=== PATIENT | female | born 1935 | race Caucasian/White ===

== ENCOUNTER 2016-08-13 10:16 | Emergency (ER) | payer OTHER ==
[~2016-08-13] VITALS: Ht 160 cm; Wt 93.0 kg
[~2016-08-13 10:16] MED LIST: ALL180 PO; DYZ PO; PRLSR20 PO; XNX25 PO; ZNTT/150 PO
[2016-08-13 10:22] VITALS: TEMP 36.7; Ht 160 cm; Wt 93.0 kg
[2016-08-13] MEDS ORDERED: OMEG10007 PO (10:54)
[2016-08-13] MEDS ORDERED: ALPR-411 PO (10:54)
[2016-08-13] MEDS ORDERED: CITA10TA4 PO (10:54)
[2016-08-13] MEDS ORDERED: PRED20TA PO (10:54)
[2016-08-13] MEDS ORDERED: TRIA37.5 PO (10:54)
--- NOTE | 2016-08-13 12:01 | DIAGNOSTIC IMAGING REPORT ---
LEFT KNEE 3 VIEWS CLINICAL HISTORY: Left knee pain COMPARISON: None. DISCUSSION: There are postsurgical changes of a total left knee arthroplasty and patellar resurfacing. There is minor lateral translation of the tibial component with respect to the femoral component. No acute fractures are visualized. There is no evidence for soft tissue swelling. IMPRESSION: 1. No acute fractures 2. Postsurgical changes 3. Suspected minor lateral translation of the tibial component with respect to the femoral component. Electronically signed by: Michael Valdes M.D. 08/13/2016 12:00 PM Dictated Date/Time: 08/13/2016 11:58 AM
--- NOTE | 2016-08-13 12:41 | DIAGNOSTIC IMAGING REPORT ---
ULTRASOUND LEFT VENOUS DOPP LOWER EXT UNILAT CLINICAL HISTORY: Left posterior knee pain COMPARISON STUDY: No previous studies for comparison. FINDINGS: No thrombus was visualized within the left common femoral superficial femoral or popliteal veins. The left anterior and posterior tibial veins appeared patent. Posterior tibial vein was not visualized. There is a complex lesion within the popliteal fossa measuring 57 x 59 x 52 mm. On a statistical basis this represents a complex popliteal cyst. A three-month follow-up study is recommended given that this is not a simple cyst. IMPRESSION: 1. Nonvisualization of the posterior tibial veins. Otherwise no DVT identified 2. 59 x 57 x 52 mm complex lesion within the popliteal fossa, likely representing a complex popliteal cyst. A three-month follow-up study would seem prudent Electronically signed by: Michael Valdes M.D. 08/13/2016 12:40 PM Dictated Date/Time: 08/13/2016 12:38 PM
--- NOTE | 2016-08-13 13:04 | EMERGENCY ROOM VISIT NOTE ---
ED Visit Note First contact with patient: 11:00 Patient was seen by our PA/PCAS. I was involved in the patient's care and did evaluate the patient myself. I was involved in the care throughout the ER stay. The patient's leg ultrasound does not show DVT, a Cervantes cyst was seen. Films show no fracture or trouble with her prosthetic knee joint. The patient's pain is likely from the Cervantes's cyst, she is being discharged home. She can be followed as an outpatient.
[2016-08-13 14:02] VITALS: BP 157/74; PULSE 63; O2SAT 95
--- NOTE | 2016-08-21 07:05 | EMERGENCY ROOM VISIT NOTE ---
History First contact with patient: 11:00 Chief Complaint: KNEEPAIN Stated Complaint: PAIN IN LEFT KNEE History of Present Illness The patient is a 81 year old white female who presents to the Emergency Room with complaints of left knee pain for several weeks. She has a history of double knee replacement approximately 20 years ago. She has tried ibuprofen, Tylenol, and prednisone without improvement. She complains of swelling in the back of the knee and calf. She denies any history of blood clot. Her family accompanies her today. Pain is 7/10. No trauma that she is aware of. she denies any long trips. she has not seen her PCP. Review of Systems REVIEW OF SYSTEM: HEENT: No dizziness, visual problems, hearing loss, or tinnitus. There is no difficulty swallowing and no oral lesions are present. PULMONARY: No cough, shortness of breath, sputum production or hemoptysis. CARDIOVASCULAR: No chest pain, palpitations, shortness of breath or peripheral edema. GASTROINTESTINAL: No diarrhea, constipation, nausea, vomiting, or abdominal pain. GENITOURINARY: No dysuria, frequency, urgency or nocturia. NEUROLOGIC: No weakness, muscle tenderness, epilepsy or history of neurological problems. MUSCULOSKELETAL: No history of joint tenderness/swelling. Positive history of arthritis and arthralgias. SKIN: No rashes or lesions. PSYCHIATRIC: No history of depression or mental illness. ENDOCRINE: No history of diabetes, thyroid disorders, or abnormal hair growth. Past Medical/Surgical History Previous surgeries: bilateral knee replacements. Medical history: significant for osteoarthritis Family History Noncontributory. Social History Smoking Status: Never Smoker Smokeless Tobacco Use: No Alcohol Use: none Drug Use: none Marital Status: single Housing Status: lives with family Occupation Status: retired Current/Historical Medications Scheduled Alprazolam (Xanax), 0.25 MG PO PRN Citalopram Hydrobromide (Citalopram Hydrobromide), 1 TAB PO DAILY Omeprazole (Prilosec), 20 MG PO DAILY Prednisone (Prednisone), 1 TAB PO DAILY Ranitidine (Zantac), 150 MG PO DAILY Triamterene/Hctz (Dyazide 37.5MG/25MG), 1 CAP PO DAILY Miscellaneous Medications Fish Oil ([place]-3), 1 CAP PO Allergies Coded Allergies: No Known Allergies (Unverified , 08/13/16) Physical Exam Vital Signs Date Time Temp Pulse Resp B/P Pulse Ox O2 Delivery O2 Flow Rate FiO2 08/13/16 14:02 63 15 157/74 95 08/13/16 13:51 63 15 157/74 95 Room Air 08/13/16 12:48 67 15 159/73 96 Room Air 08/13/16 10:22 36.7 86 18 169/98 93 Room Air Pain Rating (0-10): 0 Physical Exam Gen.: Well-developed, well-nourished, elderly white female, in no acute distress. Laying on a bed. Alert and oriented. Skin:Warm and dry with good turgor. No rashes or lesions. No ecchymosis or erythema. The patient is not diaphoretic. No abrasions. Visible edema to the left lower extremity. musculoskeletal: Her left knee evaluation reveals no significant intra- articular effusion. Supple motion of the left knee. stable collateral ligaments. No discomfort with palpation of the gastroc. No palpable cords. Normal Homans sign. Calf is palpably larger than the noninvolved side. Neurologic: Gross sensation is intact across both lower extremities by soft touch. Peripheral pulses are 2+. Medical Decision & Procedures ER Provider Diagnostic Interpretation: Radiographic imaging obtained today of the left knee shows no acute fractures. Postsurgical changes. Films were read by radiology. Ultrasound obtained today of the left lower extremity was read by radiology as negative for DVT. She does have a 5 x 5 x 5 cm complex lesion consistent with popliteal cyst is present. Follow-up ultrasound was recommended in 3 months. ED Course Patient was educated regarding today's findings as was her family. Conservative care measures were discussed. X-ray and ultrasound imaging were obtained. Family was reassured that I find no evidence for DVT. She likely has a Cervantes cyst. This may or may not resolve on its own. Given that she has internal hardware, I do not recommend aspiration. Possibility of gastroc strain was also discussed. Perform gentle stretching daily. Moist heat to the area several times per day. Tylenol every 6 hours as needed for discomfort. Physical therapy may be of benefit. Contact her PCP for a referral. Return to the ED for any other concerns. Patient was seen in conjunction with Dr. Gilliland, who also evaluated the patient and concurred with today's diagnosis and treatment plan. Medical Decision Possibility of DVT, superficial phlebitis, muscle strain, fracture, failed implant, and radiculopathy were considered. Impression Primary Impression: Cervantes's cyst of knee Additional Impression: Gastrocnemius strain, left Departure Information Dispostion Home / Self-Care Condition GOOD Forms HOME CARE DOCUMENTATION FORM, TYLENOL USE, IMPORTANT VISIT INFORMATION Patient Instructions [facility] Additional Instructions Gentle stretching daily Moist heat to the area several times per day may improve your comfort Tylenol every 6 hours as needed for discomfort Contact your PCP for a physical therapy referral for the left leg Problem Qualifiers Primary Impression: Cervantes's cyst of knee Laterality: left Qualified Codes: M71.22 - Synovial cyst of popliteal space [Cervantes], left knee Additional Impression: Gastrocnemius strain, left Encounter type: initial encounter Qualified Codes: S86.112A - Strain of other muscle(s) and tendon(s) of posterior muscle group at lower leg level, left leg, initial encounter
== END 2016-08-13 14:03 | disposition home or self-care (01) ==
LOC: C.EDB 10:19 → C.EDA 14:03
DX: M71.22 Synovial cyst of popliteal space [Baker], left knee (principal); S86.112A Strain of other muscle(s) and tendon(s) of posterior muscle group at lower leg level, left leg, initial encounter; X58.XXXA Exposure to other specified factors, initial encounter; Z96.653 Presence of artificial knee joint, bilateral; Z79.52 Long term (current) use of systemic steroids

== ENCOUNTER 2016-11-18 16:34 | Emergency (ER) | payer OTHER ==
[~2016-11-18] VITALS: Ht 160 cm; Wt 93.5 kg
[~2016-11-18 16:34] MED LIST changes: -ALL180 PO; +ALPR-411 PO; +CITA10TA4 PO; -DYZ PO; +OMEG10007 PO; +PRED20TA PO; +TRIA37.5 PO; -XNX25 PO
[2016-11-18 16:38] VITALS: TEMP 36.7; Ht 160 cm; Wt 93.5 kg
[2016-11-18] MEDS ORDERED: ACETAMINOPHEN 500 MG TAB PO STA (16:53)
--- NOTE | 2016-11-18 17:04 | EMERGENCY ROOM VISIT NOTE ---
History Report prepared by Gm: Annie Michael Under the Supervision of: Dr. Peng Gilliland M.D. First contact with patient: 16:48 Chief Complaint: KNEEPAIN Stated Complaint: LF KNEE PAIN History of Present Illness The patient is an 81 year old female who presents to the Emergency Room with complaints of persistent left knee pain that worsened today. She currently rates her discomfort as a 6/10 in severity. The patient states that she has a history of a Cervantes's Cyst diagnosed in July, noting that she had an x-ray and ultrasound. She states that the cyst ruptured a few days later and states that she developed a contusion to her left leg. The patient associates persistent edema to her left leg. She denies any fever, shortness of breath, or being on any blood thinners. The patient describes her discomfort as a sore pain and reports that she takes Advil and Tylenol for her discomfort. She denies any recent fall or injury to her left leg. The patient reports a surgical history of right and left knee replacements. The patient presents by ambulance, she was given Fentanyl in route for pain. Source of History: patient Onset: today Position: knee (left) Symptom Intensity: 6/10 Quality: other (sore) Timing: worsening, other (persistent) Associated Symptoms: No fevers, No SOB Review of Systems See HPI for pertinent positives & negatives. A total of 10 systems reviewed and were otherwise negative. Past Medical & Surgical Medical Problems: (1) Hypertension Surgical Problems: (1) H/O: hysterectomy (2) History of left knee replacement (3) History of tonsillectomy (4) S/P cholecystectomy (5) Status post right knee replacement Family History Cancer FH: heart disease Hypertension Social History Smoking Status: Never Smoker Alcohol Use: none Drug Use: none Marital Status: single Housing Status: lives with family Occupation Status: retired Current/Historical Medications Scheduled Alprazolam (Xanax), 0.25 MG PO PRN Citalopram Hydrobromide (Citalopram Hydrobromide), 1 TAB PO DAILY Ibuprofen Tab (Advil), 200-600 MG PO Q4H Omeprazole (Prilosec), 40 MG PO DAILY Prednisone (Prednisone), 1 TAB PO DAILY Ranitidine (Zantac), 150 MG PO DAILY Triamterene/Hctz (Dyazide 37.5MG/25MG), 1 CAP PO DAILY Miscellaneous Medications Fish Oil ([place]-3), 1 CAP PO Allergies Coded Allergies: No Known Allergies (Unverified , 11/18/16) Physical Exam Vital Signs Date Time Temp Pulse Resp B/P (MAP) Pulse Ox O2 Delivery O2 Flow Rate FiO2 11/18/16 18:00 70 20 165/88 95 Room Air 11/18/16 16:38 36.7 76 18 174/74 95 Room Air Physical Exam GENERAL: Patient is in no acute distress. HEENT: No acute trauma, normocephalic atraumatic, mucous membranes moist, no nasal congestion, no scleral icterus. NECK: No stridor, no adenopathy, no meningismus, trachea is midline. LUNGS: Clear to auscultation bilaterally, no wheeze, no rhonchi, breath sounds equal. HEART: 2/6 systolic murmur with a regular rate and rhythm ABDOMEN: Soft, nontender, bowel sounds positive, no hernias, no peritonitis. EXTREMITIES: Pedal edema noted, much more severe on left, no cellulitis, no gross deformity, no acute trauma. NEUROLOGIC: Oriented x 3, no acute motor or sensory deficits, no focal weakness. SKIN: No rash, no jaundice, no diaphoresis. Medical Decision & Procedures ER Provider Diagnostic Interpretation: Radiology results as stated below per my review and radiologist interpretation: ULTRASOUND LEFT LOWER EXTREMITY VENOUS CLINICAL HISTORY: Left leg swelling. COMPARISON STUDY: Left lower extremity venous ultrasound dated 08/13/2016. TECHNIQUE: Real-time, grayscale, and color Doppler sonography of the deep veins of the left lower extremity was performed from the inguinal crease to the calf. Compression and augmentation were utilized. FINDINGS: There is no sonographic evidence of deep venous thrombosis identified in the left lower extremity. The common femoral, superficial femoral, and popliteal veins are patent and normally compressible. The greater saphenous vein and the profunda femoris vein at the junction with the common femoral vein are clear. The visualized calf veins are patent. A complex nonvascular structure in the popliteal fossa is similar to previous and measures 9.2 x 4.9 x 6.8 cm. IMPRESSION: 1. There is no sonographic evidence of deep venous thrombosis identified in the left lower extremity. 2. A complex nonvascular structure in the popliteal fossa is similar to previous. This likely represent a complex bakers cyst but is incompletely characterized. Follow-up ultrasound in 3 months time is recommended to document resolution. Electronically signed by: Peng Starkey M.D. 11/18/2016 6:36 PM Dictated Date/Time: 11/18/2016 6:34 PM LEFT KNEE 3 VIEWS CLINICAL HISTORY: Left knee pain. Swelling. FINDINGS: AP, lateral, and sunrise views of left knee are compared to study dated 08/13/2016. The skeletal structures are osteopenic. No fracture is seen. A left knee arthroplasty is in near-anatomic alignment. No periprosthetic lucency is identified. There has been undersurface remodeling of the patella. A calcified fabella is incidentally noted. There is a large joint effusion. Soft tissue edema is present around the knee. IMPRESSION: 1. Soft tissue swelling and joint effusion. No acute bony abnormality is seen. 2. Osteopenia and left knee arthroplasty as above. Electronically signed by: Peng Starkey M.D. 11/18/2016 5:45 PM Dictated Date/Time: 11/18/2016 5:44 PM Medications Administered Medications (Trade) Dose Ordered Sig/Rhiannon Route Start Time Stop Time Status Last Admin Dose Admin Acetaminophen (Tylenol Tab) 1,000 mg NOW STAT PO 11/18/16 16:53 11/18/16 16:55 DC 11/18/16 17:46 1,000 MG ED Course 1648: The patient was evaluated in room C7. A complete history and physical exam was performed. 1652: Ordered Tylenol Tab 1000 mg PO. 1899: I reevaluated the patient and she is resting comfortably. I updated her on her test results. We are awaiting a call back from orthopedics. 1909: I discussed the patients case with Dr. Childers, Orthopedics. He states that the patient should be manjinder wrapped, she should use a walker, and the area should be iced. He states that he will see the patient on Monday or Monday. 1919: I reevaluated the patient and she is doing well. I discussed the exam findings with her and I discussed the treatment plan. She verbalized complete understanding and agreement. She is ready to go home. Medical Decision The patient is an 81 year old female who presents to the ED with complaints of left knee pain. Differential diagnoses considered include DVT, Cervantes's cyst, hematoma, cellulitis, fracture, knee joint effusion, prosthetic loosening. The patient presents with left knee pain and left leg swelling. Left leg ultrasound does not show DVT. A left Cervantes cyst was seen. Left knee film shows a prosthesis to be in proper position. No fracture seen. A knee joint effusion was noted. Clinically, there is no evidence for a septic joint, there is no erythema. There was no cellulitis. The patient was placed in an Manjinder wrap. She received oral Tylenol for pain control. I discussed the case with the on-call orthopedist. The patient is being discharged with a walker, elevation, rest and ice. She'll be seen in the outpatient orthopedic office. Medication Reconciliation: I attest that I have personally reviewed the patient' s current medication list. Blood Pressure Screening: Patient was found to have an elevated blood pressure and was referred to their primary doctor for recheck and further treatment. Consults Time Called: 1844 Consulting Physician: Dr. Childers, Orthopedics Returned Call: 1909 I discussed the patients case with Dr. Childers, Orthopedics. He states that the patient should be manjinder wrapped, she should use a walker, and the area should be iced. He states that he will see the patient on Monday or Monday. Impression Primary Impression: Left knee pain Additional Impressions: Effusion of left knee joint Cervantes cyst Leg edema, left Scribe Attestation The scribe's documentation has been prepared under my direction and personally reviewed by me in its entirety. I confirm that the note above accurately reflects all work, treatment, procedures, and medical decision making performed by me. Departure Information Dispostion Home / Self-Care Referrals Kiel De Dios M.D. (PCP) Zackary Childers M.D. Forms HOME CARE DOCUMENTATION FORM, IMPORTANT VISIT INFORMATION Patient Instructions My [facility] [email or web address] Additional Instructions use the walker ice to the knee for 30 minutes at a time otc pain meds wear the manjinder wrap for support use a walker to get around no steps try and keep the left leg elevated return for fever or redness call orthopedics for an appt monday Problem Qualifiers
--- NOTE | 2016-11-18 17:46 | DIAGNOSTIC IMAGING REPORT ---
LEFT KNEE 3 VIEWS CLINICAL HISTORY: Left knee pain. Swelling. FINDINGS: AP, lateral, and sunrise views of left knee are compared to study dated 08/13/2016. The skeletal structures are osteopenic. No fracture is seen. A left knee arthroplasty is in near-anatomic alignment. No periprosthetic lucency is identified. There has been undersurface remodeling of the patella. A calcified fabella is incidentally noted. There is a large joint effusion. Soft tissue edema is present around the knee. IMPRESSION: 1. Soft tissue swelling and joint effusion. No acute bony abnormality is seen. 2. Osteopenia and left knee arthroplasty as above. Electronically signed by: Peng Starkey M.D. 11/18/2016 5:45 PM Dictated Date/Time: 11/18/2016 5:44 PM
[2016-11-18] MEDS ORDERED: OMEP40CA41 PO (18:10)
[2016-11-18] MEDS ORDERED: IBUP-103 PO (18:11)
--- NOTE | 2016-11-18 18:37 | DIAGNOSTIC IMAGING REPORT ---
ULTRASOUND LEFT LOWER EXTREMITY VENOUS CLINICAL HISTORY: Left leg swelling. COMPARISON STUDY: Left lower extremity venous ultrasound dated 08/13/2016. TECHNIQUE: Real-time, grayscale, and color Doppler sonography of the deep veins of the left lower extremity was performed from the inguinal crease to the calf. Compression and augmentation were utilized. FINDINGS: There is no sonographic evidence of deep venous thrombosis identified in the left lower extremity. The common femoral, superficial femoral, and popliteal veins are patent and normally compressible. The greater saphenous vein and the profunda femoris vein at the junction with the common femoral vein are clear. The visualized calf veins are patent. A complex nonvascular structure in the popliteal fossa is similar to previous and measures 9.2 x 4.9 x 6.8 cm. IMPRESSION: 1. There is no sonographic evidence of deep venous thrombosis identified in the left lower extremity. 2. A complex nonvascular structure in the popliteal fossa is similar to previous. This likely represent a complex bakers cyst but is incompletely characterized. Follow-up ultrasound in 3 months time is recommended to document resolution. Electronically signed by: Peng Starkey M.D. 11/18/2016 6:36 PM Dictated Date/Time: 11/18/2016 6:34 PM
[2016-11-18 19:41] VITALS: BP 145/91; PULSE 78; O2SAT 96
== END 2016-11-18 19:41 | disposition home or self-care (01) ==
LOC: EDBD 16:34 → C.EDC 16:35
DX: M71.22 Synovial cyst of popliteal space [Baker], left knee (principal); M25.462 Effusion, left knee; R60.0 Localized edema; I10 Essential (primary) hypertension; Z80.9 Family history of malignant neoplasm, unspecified; Z82.49 Family history of ischemic heart disease and other diseases of the circulatory system; Z79.899 Other long term (current) drug therapy; Z79.52 Long term (current) use of systemic steroids

== ENCOUNTER → 2016-11-21 | Outpatient (CLI) | payer OTHER ==
[~2016-11-21] MED LIST changes: +IBUP-103 PO; +OMEP40CA41 PO; -PRLSR20 PO
== END | disposition home or self-care (01) ==
LOC: C.RDSM 12:25
PROVIDERS: ATTEND Physical Medicine & Rehabilitation Sports Medicine
DX: M79.605 Pain in left leg (principal)

== ENCOUNTER 2017-10-05 16:28 | Inpatient (IN) | payer OTHER ==
[~2017-10-05] VITALS: Ht 160 cm; Wt 97.7 kg
[~2017-10-05 16:28] MED LIST changes: -OMEP40CA41 PO; +RANI150T85 PO; -ZNTT/150 PO
[2017-10-05] MEDS ORDERED: ONDANSETRON INJ 2 MG/ML 2 ML VIAL IV STA (16:43)
[2017-10-05] MEDS ORDERED: SODIUM CHLORIDE 0.9% 1000ML 1,000 ML IV STA (16:43)
[2017-10-05] MEDS: HYDROmorphone INJ 0.5 MG/0.5 ML SYR IV PRN ×2 (17:17→19:51)
[2017-10-05 17:52] LABS: HEMATOCRIT 49.2 % (37-47); LYMPH % 4.3 %; LYMPH ABS # 0.18 K/uL (1.2-3.4); MEAN CELL VOLUME 92.3 fL (80-100); MEAN CORPUSCULAR HEMOGLOBIN 31.9 pg (25-34); MEAN CORPUSCULAR HGB CONC 34.6 g/dl (32-36); MEAN PLATELET VOLUME 9.7 fL (7.4-10.4); MONO % 0.5 %; MONO ABS # 0.02 K/uL (0.11-0.59); NEUT % 95.2 %; NEUT ABS # 3.97 K/uL (1.4-6.5); PLATELET COUNT 116 K/uL (130-400); RED CELL DISTRIBUTION WIDTH CV 15.1 % (11.5-14.5); WHITE BLOOD COUNT 4.17 K/uL (4.8-10.8)
--- NOTE | 2017-10-05 17:55 | DIAGNOSTIC IMAGING REPORT ---
ABD/PELVIS NO IV OR ORAL CONT CLINICAL HISTORY: 82 years-old Female presenting with acute abdominal pain, mid abdominal pain. TECHNIQUE: Multidetector CT of the abdomen and pelvis was performed without the use of intravenous contrast. IV contrast: None. A dose lowering technique was used consistent with the principles of ALARA (as low as reasonably achievable). COMPARISON: None. CT DOSE (mGy.cm): The estimated cumulative dose is 1041.58 mGycm. FINDINGS: Dye Padder Operator topogram: Large hiatal hernia. Lung bases: Consolidation volume loss along the paramediastinal lower lobe secondary to the large hilar hernia. Normal heart size. No pericardial or pleural effusion. Liver: Normal morphology. Normal density. Marked periportal edema suggested though an element of this may represent delayed ductal dilatation. Biliary: Mild biliary ductal prominence likely a reservoir effect in the post cholecystectomy state. Gallbladder surgically absent. Pancreas: Severe parenchymal atrophy. Spleen: Top normal in size. Adrenal glands: Normal noncontrast appearance. Kidneys and ureters: Normal noncontrast appearance. No nephrolithiasis. No hydronephrosis. Normal ureters. Parapelvic cysts suggested at the lower pole the left kidney. Bladder: Normal. Pelvic organs: Uterus surgically absent. No adnexal masses. Bowel: Diverticulosis of the sigmoid and descending colon. The hepatic flexure and a large portion of the transverse colon are contained within the large hiatal hernia. No bowel obstruction. The appendix is normal. No pericolonic fat infiltration. Trace periduodenal fluid with suggestion of mild wall thickening of the descending portion of the duodenum. A duodenal diverticula may be present in the horizontal portion. Peritoneal cavity: No free fluid or intraperitoneal gas. Lymph nodes: No gross lymphadenopathy allowing for noncontrast technique. Vasculature: Atherosclerosis of the normal caliber abdominal aorta. Abdominal wall: Mild body wall edema. Musculoskeletal: Degenerative changes of the spine. Osteopenia. IMPRESSION: 1. Significant periportal edema and trace periduodenal fluid. This is nonspecific and may suggest aggressive volume resuscitation. Correlate with lipase to exclude pancreatitis. Alternatively, given apparent wall thickening of the duodenum, this could represent duodenitis. 2. Duodenal diverticulum though the inflammatory change does not appear centered around this. 3. Prominence of biliary ducts may relate to a reservoir effect in the post cholecystectomy state. Correlate clinically to exclude ascending cholangitis. 4. Diverticulosis. No evidence of diverticulitis. 5. Large hilar hernia containing stomach and transverse colon. No bowel obstruction. 6. Osteopenia. Electronically signed by: Zackary Downey M.D. 10/05/2017 5:54 PM Dictated Date/Time: 10/05/2017 5:46 PM
[2017-10-05] MEDS ORDERED: OMEP40CA41 PO (18:10)
[2017-10-05 18:12] LABS: ALBUMIN 3.1 gm/dl (3.4-5.0); ALT/SGPT 644 U/L (12-78); AST/SGOT 845 U/L (15-37); BLOOD UREA NITROGEN 18 mg/dl (7-18); CALCIUM 9.8 mg/dl (8.5-10.1); CARBON DIOXIDE 29 mmol/L (21-32); CREATININE 1.14 mg/dl (0.60-1.20); GLUCOSE 152 mg/dl (70-99); POTASSIUM 3.4 mmol/L (3.5-5.1); SODIUM 139 mmol/L (136-145)
[2017-10-05 18:16] LABS: ALKALINE PHOSPHATASE 258 U/L (45-117); TOTAL PROTEIN 6.9 gm/dl (6.4-8.2)
[2017-10-05 18:38] LABS: LIPASE > 30000 U/L (73-393)
[2017-10-05] MEDS ORDERED: ACETAMINOPHEN 325 MG TAB PO PRN (19:15)
[2017-10-05] MEDS ORDERED: ONDANSETRON INJ 2 MG/ML 2 ML VIAL IV PRN (19:15)
[2017-10-05] MEDS ORDERED: PIPERACILL/TAZOBAC CONSULT ACTIVE PRN ×2 (20:00→20:15)
[2017-10-05] MEDS ORDERED: PIPERACILLIN/TAZOBACTAM 4.5 GM/100ML D5W IV ONE (20:15)
[2017-10-05] MEDS ORDERED: HYDROmorphone INJ 0.5 MG/0.5 ML SYR IV PRN (20:30)
--- NOTE | 2017-10-05 20:37 | History and Physical ---
History & Physical Date & Time of Service: Oct 05, 2017 ~ 18:45 Chief Complaint: Abdominal Pain Primary Care Physician: Dr. Rose History of Present Illness Source: patient, clinic records, hospital records 82-year-old female who presents to the ER with chief complaint of abdominal pain. Patient reports her pain initially began throughout the night however she reports she was able to sleep. When patient woke up this morning she ate breakfast and then the pain returned. It progressively got worse throughout the day. She reports pain is located in the mid abdomen and midepigastric area. She denies any radiation of the pain. She reports the pain is severe. She had nausea but denies any vomiting. She had some episodes of hot flashes and chills with the pain. No documented fevers. She reports she otherwise has been feeling well recently. No chest pain or shortness of breath. She reports some occasional lightheadedness when standing too quickly which is chronic. No dizziness or syncopal events. She denies any urinary symptoms. In the ED, patient is found to have a transaminitis and lipase of greater than 30,000. She is hemodynamically stable. She was given IVF, IV Zofran, and IV Dilaudid. She reports marked improvement in her symptoms. 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 (3) CKD (chronic kidney disease), stage III Status: Chronic (4) GERD (gastroesophageal reflux disease) Status: Chronic (5) Hiatal hernia Status: Chronic (6) Hypertension Status: Chronic Surgical Problems: (1) History of total bilateral knee replacement Status: Chronic (2) Hx of tonsillectomy Status: Chronic (3) S/P cholecystectomy Status: Chronic (4) S/P hysterectomy Status: Chronic Family History Noncontributory secondary to patient's advanced age Social History Smoking Status: Never Smoker Alcohol Use: none Drug Use: none Housing status: lives alone Allergies Coded Allergies: No Known Allergies (Unverified , 11/18/16) Home Medications Scheduled Citalopram Hydrobromide (Citalopram Hydrobromide), 10 MG PO DAILY Omeprazole (Prilosec), 40 MG PO DAILY Ranitidine (Zantac), 150 MG PO DAILY Triamterene/Hctz (Dyazide 37.5MG/25MG), 1 CAP PO DAILY Review of Systems ROS per HPI, all other systems reviewed and negative Physical Exam Vital Signs Date Time Temp Pulse Resp B/P (MAP) Pulse Ox O2 Delivery O2 Flow Rate FiO2 10/05/17 20:01 75 20 99/56 93 10/05/17 19:16 81 18 96/56 96 Room Air 10/05/17 18:30 84 20 143/80 94 Room Air 10/05/17 17:59 90 18 124/64 94 Room Air 10/05/17 16:35 36.9 80 18 160/81 97 Room Air General Appearance: WD/WN, no apparent distress Head: normocephalic, atraumatic Eyes: normal inspection, EOMI, sclerae normal ENT: hearing grossly normal, + pertinent finding (Mucous membranes dry) Neck: supple, no JVD, trachea midline Respiratory/Chest: lungs clear, normal breath sounds, no respiratory distress Cardiovascular: regular rate, rhythm, no edema, normal peripheral pulses Abdomen/GI: normal bowel sounds, non tender, soft, no organomegaly Extremities/Musculoskelatal: normal inspection, no calf tenderness, normal capillary refill Neurologic/Psych: no motor/sensory deficits, alert, normal mood/affect, oriented x 3 Skin: normal color, warm/dry Diagnostics Laboratory Results 10/05/17 17:20 Red Blood Count 5.33, Mean Corpuscular Volume 92.3, Mean Corpuscular Hemoglobin 31.9, Mean Corpuscular Hemoglobin Concent 34.6, Mean Platelet Volume 9.7, Neutrophils (%) (Auto) 95.2, Lymphocytes (%) (Auto) 4.3, Monocytes (%) (Auto) 0.5, Eosinophils (%) (Auto) 0.0, Basophils (%) (Auto) 0.0, Neutrophils # (Auto) 3.97, Lymphocytes # (Auto) 0.18, Monocytes # (Auto) 0.02, Eosinophils # (Auto) 0.00, Basophils # (Auto) 0.00 10/05/17 17:20 Test 10/05/17 17:20 10/05/17 18:50 10/05/17 19:56 10/05/17 21:34 White Blood Count 4.17 K/uL (4.8-10.8) Red Blood Count 5.33 M/uL (4.2-5.4) Hemoglobin 17.0 g/dL (12.0-16.0) Hematocrit 49.2 % (37-47) Mean Corpuscular Volume 92.3 fL (80-100) Mean Corpuscular Hemoglobin 31.9 pg (25-34) Mean Corpuscular Hemoglobin Concent 34.6 g/dl (32-36) Platelet Count 116 K/uL (130-400) Mean Platelet Volume 9.7 fL (7.4-10.4) Neutrophils (%) (Auto) 95.2 % Lymphocytes (%) (Auto) 4.3 % Monocytes (%) (Auto) 0.5 % Eosinophils (%) (Auto) 0.0 % Basophils (%) (Auto) 0.0 % Neutrophils # (Auto) 3.97 K/uL (1.4-6.5) Lymphocytes # (Auto) 0.18 K/uL (1.2-3.4) Monocytes # (Auto) 0.02 K/uL (0.11-0.59) Eosinophils # (Auto) 0.00 K/uL (0-0.5) Basophils # (Auto) 0.00 K/uL (0-0.2) RDW Standard Deviation 51.0 fL (36.4-46.3) RDW Coefficient of Variation 15.1 % (11.5-14.5) Immature Granulocyte % (Auto) 0.0 % Immature Granulocyte # (Auto) 0.00 K/uL (0.00-0.02) Anion Gap 8.0 mmol/L (3-11) Est Creatinine Clear Calc Drug Dose 40.2 ml/min Estimated GFR () 51.5 Estimated GFR (Non- 44.4 BUN/Creatinine Ratio 15.7 (10-20) Calcium Level 9.8 mg/dl (8.5-10.1) Magnesium Level 1.7 mg/dl (1.8-2.4) Total Bilirubin 2.6 mg/dl (0.2-1) Direct Bilirubin 1.9 mg/dl (0-0.2) Aspartate Amino Transf (AST/SGOT) 845 U/L (15-37) Alanine Aminotransferase (ALT/SGPT) 644 U/L (12-78) Alkaline Phosphatase 258 U/L (45-117) Total Protein 6.9 gm/dl (6.4-8.2) Albumin 3.1 gm/dl (3.4-5.0) Triglycerides Level 140 mg/dl (0-150) Lipase > 98936 U/L (73-393) Urine Color YELLOW Urine Appearance CLEAR (CLEAR) Urine pH 5.0 (4.5-7.5) Urine Specific Summers 1.010 (1.000-1.030) Urine Protein NEG (NEG) Urine Glucose (UA) NEG (NEG) Urine Ketones NEG (NEG) Urine Occult Blood 1+ (NEG) Urine Nitrite NEG (NEG) Urine Bilirubin 1+ (NEG) Urine Urobilinogen POS (NEG) Urine Leukocyte Esterase NEG (NEG) Urine RBC 5-10 /hpf (0-4) Urine WBC 1-5 /hpf (0-5) Urine Epithelial Cells 10-20 /lpf (0-5) Urine Bacteria NEG (NEG) Acetaminophen Level ug/ml (10-30) Hepatitis B Surface Antigen NEG (NEG) Hepatitis C Antibody NEG (NEG) Date/Time Source Procedure Growth Status 10/05/17 21:34 Blood Blood Culture Pending Ordered Results Past 24 Hours Test 10/05/17 17:20 10/05/17 18:50 10/05/17 19:56 Range/Units White Blood Count 4.17 4.8-10.8 K/uL Red Blood Count 5.33 4.2-5.4 M/uL Hemoglobin 17.0 12.0-16.0 g/dL Hematocrit 49.2 37-47 % Mean Corpuscular Volume 92.3 80-100 fL Mean Corpuscular Hemoglobin 31.9 25-34 pg Mean Corpuscular Hemoglobin Concent 34.6 32-36 g/dl Platelet Count 116 130-400 K/uL Mean Platelet Volume 9.7 7.4-10.4 fL Neutrophils (%) (Auto) 95.2 % Lymphocytes (%) (Auto) 4.3 % Monocytes (%) (Auto) 0.5 % Eosinophils (%) (Auto) 0.0 % Basophils (%) (Auto) 0.0 % Neutrophils # (Auto) 3.97 1.4-6.5 K/uL Lymphocytes # (Auto) 0.18 1.2-3.4 K/uL Monocytes # (Auto) 0.02 0.11-0.59 K/uL Eosinophils # (Auto) 0.00 0-0.5 K/uL Basophils # (Auto) 0.00 0-0.2 K/uL RDW Standard Deviation 51.0 36.4-46.3 fL RDW Coefficient of Variation 15.1 11.5-14.5 % Immature Granulocyte % (Auto) 0.0 % Immature Granulocyte # (Auto) 0.00 0.00-0.02 K/uL Sodium Level 139 136-145 mmol/L Potassium Level 3.4 3.5-5.1 mmol/L Chloride Level 102 98-107 mmol/L Carbon Dioxide Level 29 21-32 mmol/L Anion Gap 8.0 3-11 mmol/L Blood Urea Nitrogen 18 7-18 mg/dl Creatinine 1.14 0.60-1.20 mg/dl Est Creatinine Clear Calc Drug Dose 40.2 ml/min Estimated GFR () 51.5 Estimated GFR (Non- 44.4 BUN/Creatinine Ratio 15.7 10-20 Random Glucose 152 70-99 mg/dl Calcium Level 9.8 8.5-10.1 mg/dl Magnesium Level 1.7 1.8-2.4 mg/dl Total Bilirubin 2.6 0.2-1 mg/dl Direct Bilirubin 1.9 0-0.2 mg/dl Aspartate Amino Transf (AST/SGOT) 845 15-37 U/L Alanine Aminotransferase (ALT/SGPT) 644 12-78 U/L Alkaline Phosphatase 258 45-117 U/L Total Protein 6.9 6.4-8.2 gm/dl Albumin 3.1 3.4-5.0 gm/dl Triglycerides Level 140 0-150 mg/dl Lipase > 21712 73-393 U/L Urine Color YELLOW Urine Appearance CLEAR CLEAR Urine pH 5.0 4.5-7.5 Urine Specific Summers 1.010 1.000-1.030 Urine Protein NEG NEG Urine Glucose (UA) NEG NEG Urine Ketones NEG NEG Urine Occult Blood 1+ NEG Urine Nitrite NEG NEG Urine Bilirubin 1+ NEG Urine Urobilinogen POS NEG Urine Leukocyte Esterase NEG NEG Urine RBC 5-10 0-4 /hpf Urine WBC 1-5 0-5 /hpf Urine Epithelial Cells 10-20 0-5 /lpf Urine Bacteria NEG NEG Diagnostic Radiology CT ABD/PELVIS IMPRESSION: 1. Significant periportal edema and trace periduodenal fluid. This is nonspecific and may suggest aggressive volume resuscitation. Correlate with lipase to exclude pancreatitis. Alternatively, given apparent wall thickening of the duodenum, this could represent duodenitis. 2. Duodenal diverticulum though the inflammatory change does not appear centered around this. 3. Prominence of biliary ducts may relate to a reservoir effect in the post cholecystectomy state. Correlate clinically to exclude ascending cholangitis. 4. Diverticulosis. No evidence of diverticulitis. 5. Large hilar hernia containing stomach and transverse colon. No bowel obstruction. 6. Osteopenia. Impression Assessment and Plan ACUTE PANCREATITIS TRANSAMINITIS -Admit to telemetry -Patient presenting with abdominal pain 1 day; in the ED found to have transaminitis and lipase > 30,000 -CT ABD/pelvis findings as above -History of cholecystectomy; no noted gallstones or sludge on CT scan -No history of alcohol use, no new medications, no offending medications and on home medication list -Will check right upper quadrant ultrasound, portal vein Doppler, and MRCP -Currently afebrile, no leukocytosis; given possible duodenitis and cholangitis noted on CT scan will empirically cover with Zosyn for now -Check Tylenol level and hepatitis panel; noted normal triglycerides -N.p.o., and assess at 200 mL/hour -Case discussed with Dr. Vogel, GI on-call HYPERTENSION -BP currently stable -Will hold Maxide due to acute illness GERD, HIATAL HERNIA -Will place on IV PPI due to n.p.o. status ANXIETY -Hold citalopram for now while n.p.o. DVT PROPHYLAXIS -SCDs in the event patient needs an invasive procedure CODE STATUS -Patient is a DNR as per my discussion with her. DISPOSITION -In my clinical judgment this beneficiary meets acute admission criteria, established by [facility], that includes being hospitalized through two midnights. ADDENDUM: I have seen and examined the patient and agree with the assessment and plan as stated with the following exceptions. The patient is not jaundiced and denies any bloating, bowel changes or weight loss. She has a clinical picture consistent with acute pancreatitis, however, lab values are quite elevated in such an acute setting with symptoms beginning just after breakfast this morning. She felt well yesterday. 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 Tylenol level could not be run as analyzer could not interpret result off the icteric sample. This was sent to a reference facility. INR pending. She denies any fevers, chills or diarrhea and evidence of duodenitis is more likely a result of surrounding inflammation. Covering with Zosyn and blood cultures ordered to ensure no translocation of bacteria. She has a very dilated biliary tree without evidence of clear stones, so a liver us with doppler was performed to rule out clot and was negative. Plan to perform MRCP overnight to elucidate pancreatic structures and look for obstructions or other concerning etiologies such as pancreatic head mass. This may not have been picked up on CT a/p without contrast performed earlier. She had some dilaudid just prior to my exam , and I could not reproduce any TTP in epigastric region or elsewhere. Abdomen was nondistended and soft with normoactive bowel sounds. Cont to treat AP with IVF, pain control and bowel rest. Appreciate GI recs in am. Of note, I explained the plan with both the patient and family separately and spent roughly 20 minutes with each. All questions were answered to their satisfaction. Julius, DO Resuscitation Status VTE Prophylaxis Will order VTE Prophylaxis: Yes
[2017-10-05 21:00] VITALS: BP 97/51; PULSE 83; TEMP 36.4; O2SAT 93; Ht 160 cm; Wt 97.7 kg
[2017-10-05] MEDS ORDERED: PIPERACILL/TAZOBAC IV 3.375 GM in NSS 100 ML IV ONE (21:00)
[2017-10-05 21:30] LABS: HEP C IGG 13 YRS+OLDER_RFLX NEG (NEG)
--- NOTE | 2017-10-05 21:30 | DIAGNOSTIC IMAGING REPORT ---
GALLBLADDER-ABD LIMITED, DUPLEX PORTAL HEPATIC VEINS HISTORY: 82 years-old Female pancreatitis acute right upper quadrant abdominal pain with pancreatitis COMPARISON: CT 10/05/2017 TECHNIQUE: Multiple real-time sonographic images of the abdominal right upper quadrant were obtained assessing grayscale appearance and color flow. Spectral analysis of the hepatic vasculature also obtained. FINDINGS: Study is limited secondary to patient condition and body habitus. Pancreas is not well visualized. The liver appears heterogeneous measuring up to 18 cm in length. No intrahepatic mass lesions or biliary ductal dilation identified. Prior cholecystectomy. The common bile duct measures 8 mm, within normal limits considering patient's age and postcholecystectomy status. Hepatopedal flow within the portal vein with velocities measuring up to 39 cm/s. Patent IVC with normal-appearing phasic waveforms of the hepatic veins. Patent hepatic artery. Right kidney measures 10.1 cm in length and is unremarkable. IMPRESSION: 1. Nonspecific mildly heterogeneous appearance of the liver. 2. Normal sonographic appearance of the hepatic vasculature. 3. Prior cholecystectomy. The above report was generated using voice recognition software. It may contain grammatical, syntax or spelling errors. Electronically signed by: Sergio Guidry M.D. 10/05/2017 9:28 PM Dictated Date/Time: 10/05/2017 9:23 PM
--- NOTE | 2017-10-05 21:41 | EMERGENCY ROOM VISIT NOTE ---
History Report prepared by Gm: Juanita Bains Under the Supervision of: Dr. Khalif Hagen M.D. First contact with patient: 16:34 Chief Complaint: ABDOMINAL PAIN Stated Complaint: Abdominal Pain Nursing Triage Summary: Patient arrives via ems from home with complaints of mid abdominal pain that radiates into back, patient stated "I thought it was just gas pains so I took some stomach medicine but it did not help." History of gallbladder removed and hysterectomy. PT ate her breakfast this am and then felt worse afterwards. History of Present Illness The patient is an 82 year old female who presents to the Emergency Room with complaints of persistent mid abdominal pain starting this morning. She presents to the ED by EMS. She had been feeling well yesterday. Her symptoms worsened after she ate breakfast this morning. She felt chilled and diaphoretic. She was nauseous, but unable to vomit. Her abdominal pain goes into her back. She currently rates her discomfort as a 7/10 in severity. It was a 9/10 at worst. She is currently not nauseous. She had a bowel movement today. She has a history of hysterectomy, cholecystectomy, hiatal hernia, and acid reflux. She denies any history of heart problems. Pt denies LOC, headache, fevers, visual changes, neck pain, chest pain, breathing difficulties, vomiting, melena, hematochezia, urinary symptoms, numbness, weakness, lymphadenopathy, rash, or other complaints. Source of History: patient Onset: this morning Position: abdomen (mid) Symptom Intensity: 7/10 currently, 9/10 at worst Timing: other (persistent) Associated Symptoms: + chills, + diaphoresis, + nausea, + back pain Review of Systems See HPI for pertinent positives and negatives. A total of ten systems were reviewed and were otherwise negative. Past Medical & Surgical Medical Problems: (1) Anxiety (2) Cervantes's cyst of knee (3) CKD (chronic kidney disease), stage III (4) GERD (gastroesophageal reflux disease) (5) Hiatal hernia (6) Hypertension Surgical Problems: (1) History of total bilateral knee replacement (2) Hx of tonsillectomy (3) S/P cholecystectomy (4) S/P hysterectomy Family History Cancer FH: heart disease Hypertension Social History Smoking Status: Never Smoker Alcohol Use: none Drug Use: none Marital Status: single Housing Status: lives with family Occupation Status: retired Current/Historical Medications Scheduled Citalopram Hydrobromide (Citalopram Hydrobromide), 10 MG PO DAILY Omeprazole (Prilosec), 40 MG PO DAILY Ranitidine (Zantac), 150 MG PO DAILY Triamterene/Hctz (Dyazide 37.5MG/25MG), 1 CAP PO DAILY Allergies Coded Allergies: No Known Allergies (Unverified , 11/18/16) Physical Exam Vital Signs Date Time Temp Pulse Resp B/P (MAP) Pulse Ox O2 Delivery O2 Flow Rate FiO2 10/05/17 18:30 84 20 143/80 94 Room Air 10/05/17 17:59 90 18 124/64 94 Room Air 10/05/17 16:35 36.9 80 18 160/81 97 Room Air Physical Exam GENERAL: Awake, alert, uncomfortable-appearing, in no distress HENT: Normocephalic, atraumatic. Oropharynx unremarkable. EYES: Normal conjunctiva. Sclera non-icteric. NECK: Supple. No nuchal rigidity. FROM. No masses. RESPIRATORY: Clear to auscultation. No wheezes. No rales. Normal respiratory effort. CARDIAC: Normal rate. Normal rhythm. No murmurs. No rubs. Extremities warm and well perfused. Pulses equal. No JVD. GI: Soft, non-distended. Epigastric and midline abdominal tenderness to palpation. No rebound or guarding. No masses. RECTAL: Deferred. MUSCULOSKELETAL: Atraumatic. Chest examination reveals no tenderness. The back is symmetrical on inspection without obvious abnormality. There is no CVA tenderness to palpation. No joint edema. LOWER EXTREMITIES: Calves are equal size bilaterally and non-tender. No edema. No discoloration. NEURO: Normal sensorium. No sensory or motor deficits noted. SKIN: No rash or jaundice noted. Medical Decision & Procedures ER Provider Diagnostic Interpretation: Radiology results as stated below per my review and radiologist interpretation: ABD/PELVIS NO IV OR ORAL CONT CLINICAL HISTORY: 82 years-old Female presenting with acute abdominal pain, mid abdominal pain. TECHNIQUE: Multidetector CT of the abdomen and pelvis was performed without the use of intravenous contrast. IV contrast: None. A dose lowering technique was used consistent with the principles of ALARA (as low as reasonably achievable). COMPARISON: None. CT DOSE (mGy.cm): The estimated cumulative dose is 1041.58 mGycm. 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 Lung bases: Consolidation volume loss along the paramediastinal lower lobe secondary to the large hilar hernia. Normal heart size. No pericardial or pleural effusion. Liver: Normal morphology. Normal density. Marked periportal edema suggested though an element of this may represent delayed ductal dilatation. Biliary: Mild biliary ductal prominence likely a reservoir effect in the post cholecystectomy state. Gallbladder surgically absent. Pancreas: Severe parenchymal atrophy. Spleen: Top normal in size. Adrenal glands: Normal noncontrast appearance. Kidneys and ureters: Normal noncontrast appearance. No nephrolithiasis. No hydronephrosis. Normal ureters. Parapelvic cysts suggested at the lower pole the left kidney. Bladder: Normal. Pelvic organs: Uterus surgically absent. No adnexal masses. Bowel: Diverticulosis of the sigmoid and descending colon. The hepatic flexure and a large portion of the transverse colon are contained within the large hiatal hernia. No bowel obstruction. The appendix is normal. No pericolonic fat infiltration. Trace periduodenal fluid with suggestion of mild wall thickening of the descending portion of the duodenum. A duodenal diverticula may be present in the horizontal portion. Peritoneal cavity: No free fluid or intraperitoneal gas. Lymph nodes: No gross lymphadenopathy allowing for noncontrast technique. Vasculature: Atherosclerosis of the normal caliber abdominal aorta. Abdominal wall: Mild body wall edema. Musculoskeletal: Degenerative changes of the spine. Osteopenia. IMPRESSION: 1. Significant periportal edema and trace periduodenal fluid. This is nonspecific and may suggest aggressive volume resuscitation. Correlate with lipase to exclude pancreatitis. Alternatively, given apparent wall thickening of the duodenum, this could represent duodenitis. 2. Duodenal diverticulum though the inflammatory change does not appear centered around this. 3. Prominence of biliary ducts may relate to a reservoir effect in the post cholecystectomy state. Correlate clinically to exclude ascending cholangitis. 4. Diverticulosis. No evidence of diverticulitis. 5. Large hilar hernia containing stomach and transverse colon. No bowel obstruction. 6. Osteopenia. Electronically signed by: Zackary Downey M.D. 10/05/2017 5:54 PM Dictated Date/Time: 10/05/2017 5:46 PM Laboratory Results 10/05/17 17:20 Red Blood Count 5.33, Mean Corpuscular Volume 92.3, Mean Corpuscular Hemoglobin 31.9, Mean Corpuscular Hemoglobin Concent 34.6, Mean Platelet Volume 9.7, Neutrophils (%) (Auto) 95.2, Lymphocytes (%) (Auto) 4.3, Monocytes (%) (Auto) 0.5, Eosinophils (%) (Auto) 0.0, Basophils (%) (Auto) 0.0, Neutrophils # (Auto) 3.97, Lymphocytes # (Auto) 0.18, Monocytes # (Auto) 0.02, Eosinophils # (Auto) 0.00, Basophils # (Auto) 0.00 10/05/17 17:20 Test 10/05/17 17:20 10/05/17 18:50 White Blood Count 4.17 K/uL (4.8-10.8) Red Blood Count 5.33 M/uL (4.2-5.4) Hemoglobin 17.0 g/dL (12.0-16.0) Hematocrit 49.2 % (37-47) Mean Corpuscular Volume 92.3 fL (80-100) Mean Corpuscular Hemoglobin 31.9 pg (25-34) Mean Corpuscular Hemoglobin Concent 34.6 g/dl (32-36) Platelet Count 116 K/uL (130-400) Mean Platelet Volume 9.7 fL (7.4-10.4) Neutrophils (%) (Auto) 95.2 % Lymphocytes (%) (Auto) 4.3 % Monocytes (%) (Auto) 0.5 % Eosinophils (%) (Auto) 0.0 % Basophils (%) (Auto) 0.0 % Neutrophils # (Auto) 3.97 K/uL (1.4-6.5) Lymphocytes # (Auto) 0.18 K/uL (1.2-3.4) Monocytes # (Auto) 0.02 K/uL (0.11-0.59) Eosinophils # (Auto) 0.00 K/uL (0-0.5) Basophils # (Auto) 0.00 K/uL (0-0.2) RDW Standard Deviation 51.0 fL (36.4-46.3) RDW Coefficient of Variation 15.1 % (11.5-14.5) Immature Granulocyte % (Auto) 0.0 % Immature Granulocyte # (Auto) 0.00 K/uL (0.00-0.02) Anion Gap 8.0 mmol/L (3-11) Est Creatinine Clear Calc Drug Dose 40.2 ml/min Estimated GFR () 51.5 Estimated GFR (Non- 44.4 BUN/Creatinine Ratio 15.7 (10-20) Calcium Level 9.8 mg/dl (8.5-10.1) Magnesium Level 1.7 mg/dl (1.8-2.4) Total Bilirubin 2.6 mg/dl (0.2-1) Direct Bilirubin 1.9 mg/dl (0-0.2) Aspartate Amino Transf (AST/SGOT) 845 U/L (15-37) Alanine Aminotransferase (ALT/SGPT) 644 U/L (12-78) Alkaline Phosphatase 258 U/L (45-117) Total Protein 6.9 gm/dl (6.4-8.2) Albumin 3.1 gm/dl (3.4-5.0) Triglycerides Level 140 mg/dl (0-150) Lipase > 76447 U/L (73-393) Urine Color YELLOW Urine Appearance CLEAR (CLEAR) Urine pH 5.0 (4.5-7.5) Urine Specific [place] 1.010 (1.000-1.030) Urine Protein NEG (NEG) Urine Glucose (UA) NEG (NEG) Urine Ketones NEG (NEG) Urine Occult Blood 1+ (NEG) Urine Nitrite NEG (NEG) Urine Bilirubin 1+ (NEG) Urine Urobilinogen POS (NEG) Urine Leukocyte Esterase NEG (NEG) Urine RBC 5-10 /hpf (0-4) Urine WBC 1-5 /hpf (0-5) Urine Epithelial Cells 10-20 /lpf (0-5) Urine Bacteria NEG (NEG) Laboratory results reviewed by me Medications Administered Medications (Trade) Dose Ordered Sig/Rhiannon Route Start Time Stop Time Status Last Admin Dose Admin Sodium Chloride 1,000 ml @ 125 mls/hr Q8H STAT IV 10/05/17 16:43 10/05/17 20:52 DC 10/05/17 17:17 125 MLS/HR Ondansetron HCl (Zofran Inj) 4 mg NOW STAT IV 10/05/17 16:43 10/05/17 16:46 DC 10/05/17 17:17 4 MG Hydromorphone HCl (Dilaudid Inj) 0.5 mg Q15M PRN IV 10/05/17 16:45 10/05/17 20:54 DC 10/05/17 19:51 0.5 MG ECG Per My Interpretation Indication: abdominal pain Rate (beats per minute): 80 Rhythm: normal sinus Findings: Q waves (Anterior), no acute ischemic change, no ectopy ED Course 1641: The patient was evaluated in room A3. A complete history and physical exam was performed. 164: Zofran Inj 4 mg IV, Sodium Chloride 1000 ml @ 125 mls/hr IV. 164: Dilaudid Inj 0.5 mg IV. 1827: Upon reexamination, the patient was resting comfortably. I discussed the test results and treatment plan with her and family. The patient will be evaluated for further management. 1837: I [facility] the [facility]'s [facility] The patient will be evaluated for further treatment and disposition. Medical Decision Prior records/ancillary studies reviewed. Triage Nursing notes reviewed and agree them. Additional history obtained from family. The patient's history was concerning for abdominal pain. Differential diagnosis: Etiologies such as biliary pathology, UTI, pancreatitis, obstruction, appendicitis, diverticulitis, PUD, mesenteric ischemia, aortic pathology, infections, inflammatory bowel disease, renal colic, as well as others were entertained. Physical examination findings: As above. ER treatment provided: IV normal saline hydration IV Zofran IV Dilaudid On reassessment the patient felt better. Diagnostics interpreted by me: ECG: No skin The labs revealed an unremarkable CBC. Chemistry panel revealed significant elevation of LFTs. Lipase was markedly elevated consistent with pancreatitis. Imaging studies: CT scan as above. The patient has pancreatitis. Consultation: A consultation was placed with the [facility] Hospitalist service. The case was discussed and diagnostics were reviewed. The patient was evaluated in the ER for further treatment. Medication Reconcilliation Current Medication List: was personally reviewed by me Blood Pressure Screening Patient's blood pressure: Elevated blood pressure Referred to hospitalist. Consults Time Called: 1832 Consulting Physician: ELANA Fuentes [facility] Hospitalist Returned Call: 1837 Discussed the patient's case. The patient will be evaluated for further treatment and disposition. Impression Primary Impression: Pancreatitis Additional Impression: Elevated LFTs Scribe Attestation The scribe's documentation has been prepared under my direction and personally reviewed by me in its entirety. I confirm that the note above accurately reflects all work, treatment, procedures, and medical decision making performed by me. Departure Information Dispostion Being Evaluated By Hospitalist Referrals No Doctor, Assigned (PCP) Patient Instructions My [facility] Problem Qualifiers
[2017-10-05] MEDS: SODIUM CHLORIDE 0.9% 1000ML 1,000 ML IV SCH (21:42)
[2017-10-05] MEDS ORDERED: LORAZEPAM 2 MG/ML 1 ML VIAL IV PRN (21:45)
[2017-10-05] MEDS: PANTOprazole INJ 40 MG in SYRINGE 0 ML IV SCH (21:45)
[2017-10-05] MEDS: POTASSIUM CHLR 10 MEQ / WTR 100 ML IV SCH ×2 (22:44→23:34)
[2017-10-05] MEDS: MAGNESIUM SULFATE 1GM / D5W 100 ML IV SCH (23:34)
[2017-10-06] VITALS (8 sets, daily range): BP systolic 100–145; BP diastolic 39–58; PULSE 66–77; TEMP 36.4–36.7; O2SAT 93–97
[2017-10-06] MEDS: POTASSIUM CHLR 10 MEQ / WTR 100 ML IV SCH ×2 (00:34→01:29)
[2017-10-06] MEDS: MAGNESIUM SULFATE 1GM / D5W 100 ML IV SCH (00:34)
[2017-10-06] MEDS: PIPERACILL/TAZOBAC IV 3.375 GM in DEXTROSE 5% 100ML 100 ML IV SCH ×3 (02:25→18:20)
[2017-10-06 06:18] LABS: HEMATOCRIT 41.3 % (37-47); MEAN CELL VOLUME 93.2 fL (80-100); MEAN CORPUSCULAR HEMOGLOBIN 31.6 pg (25-34); MEAN CORPUSCULAR HGB CONC 33.9 g/dl (32-36); MEAN PLATELET VOLUME 10.1 fL (7.4-10.4); PLATELET COUNT 121 K/uL (130-400); RED CELL DISTRIBUTION WIDTH CV 15.5 % (11.5-14.5); RED CELL DISTRIBUTION WIDTH SD 53.4 fL (36.4-46.3)
[2017-10-06 06:57] LABS: ALBUMIN 2.4 gm/dl (3.4-5.0); CALCIUM 8.7 mg/dl (8.5-10.1); CREATININE 1.54 mg/dl (0.60-1.20); TOTAL PROTEIN 5.4 gm/dl (6.4-8.2)
--- NOTE | 2017-10-06 07:18 | DIAGNOSTIC IMAGING REPORT ---
MRCP CLINICAL HISTORY: transaminitis, pancreatitis abdominal pain, nausea. COMPARISON STUDY: CT scan dated 10/05/2017 FINDINGS: MRCP was performed. The patient had difficulty with breath holding. [employer] images demonstrate a large hiatal hernia containing portions of stomach and colon. The gallbladder is surgically absent. There is mild biliary ductal prominence. The common bile duct measures 9 mm. There is an equivocal filling defect within the cystic duct remnant. There is a meniscus sign involving the distal common bile duct. A distal calculus cannot be excluded. The pancreatic duct is mildly dilated measuring 4 mm. The spleen is mildly enlarged measuring 12 cm. 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 The largest measures 7 mm. There is mild peripancreatic edema/periduodenal edema IMPRESSION: 1. Large hiatal hernia containing portions of stomach and colon 2. 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 Mild biliary ductal dilatation. The common bile duct measures 9 mm. 4. Mild pancreatic ductal dilatation (4 mm) 5. Mild splenomegaly 6. Equivocal small filling defect within the cystic duct remnant 7. Distal common bile duct meniscus sign. A small impacted calculus cannot be excluded. Electronically signed by: Michael Valdes M.D. 10/06/2017 7:16 AM Dictated Date/Time: 10/06/2017 7:02 AM
--- NOTE | 2017-10-06 09:01 | Clinical Documentation Query ---
LASHAY Nickerson : CLINICAL DOCUMENTATION QUERIES QUERY 1 OF 2 Patient is an 82 year old female admitted for acute pancreatitis. Documented history of CKD III with BUN and creatinine on admission of 18 mg/dl and 1.14 mg/dl. This a.m. (10/06), repeat values are 25 mg/dl and 1.54 mg/dl. She is being treated with IVF and monitored with serial chemistries. In your clinical opinion is this patient being managed for: ( x ) Acute kidney failure ( ) Not Agree ( ) Other explanation of clinical findings (Please Explain) ( ) Unable to determine (Please Define) ( ) Need to Discuss The medical record reflects the following clinical findings, treatment, and risk factors. Clinical Indicators: As above Treatment: She is being treated with IVF and monitored with serial chemistries. 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 In order to capture this radiologic finding, provider(s) must capture this information in their progress notes. As appropriate, consider documentation of these findings as suggested below. Thank you. In your clinical opinion is this patient being managed for: ( ) Intraductal papillary mucinous neoplasms ( ) Not Agree ( ) Other explanation of clinical findings (Please Explain) ( ) Unable to determine (Please Define) ( x ) Need to Discuss Will need further workup The medical record reflects the following clinical findings, treatment, and risk factors. Clinical Indicators: As above Treatment: Radiologic study, surgical consultation Risk Factors: Age Please clarify and document your clinical opinion in the progress notes and discharge summary. Terms such as "probable", "suspected", "likely", "questionable", "possible", or "still to be ruled out" are acceptable. IF IN AGREEMENT, YOU MUST DOCUMENT ABOVE DIAGNOSTIC STATEMENT IN DAILY PROGRESS NOTES AND DISCHARGE SUMMARY. This document is not part of the patient's record. Thank You, Bi Naranjo, RN [phone]
[2017-10-06] MEDS: SODIUM CHLORIDE 0.9% 1000ML 1,000 ML IV SCH (09:46)
--- NOTE | 2017-10-06 10:12 | Gastrointestinal Consultation ---
Gastrointestinal Consultation Date of Consultation: Oct 06, 2017 Attending Physician: Fahad Consulting Physician: Jayden Reason for Consultation: panc, cbd stone History of Present Illness Patient is a 82 year old female w/ history CKD, HTN and others below who presented with acute abd pain, nausea, vomiting - GI asked to evaluate for pancreatitis, CBD stone. Pt was seen and evaluated chart reviewed. Notes upper abd pain, nausea, vomiting (now resolved) x 24 horus. no coffee ground emesis, hematemesis. Has persistent abd pain, upper abd, constant, worse with palpation. Sharp. No change in BM. no black or bloody stools. On arrival she was w/o leukocytosis, Lipase > 30,000 w/ elevated LFTs and normal kidney function. This AM WBC 22 w/ Mally BUN 25, crisis intervention specialist 1.6 TB 4, AST 400, ALT 500, ALK 500 and lipase 8000. She was started on Zosyn w/ cultures obtained prior. 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 The common bile duct measures 9 mm. Mild pancreatic ductal dilatation (4 mm) Mild splenomegaly Equivocal small filling defect within the cystic duct remnant Distal common bile duct meniscus sign. A small impacted calculus cannot be excluded. Liver US: Nonspecific mildly heterogeneous appearance of the liver. Normal sonographic appearance of the hepatic vasculature. Prior cholecystectomy. GB US: Nonspecific mildly heterogeneous appearance of the liver. Normal sonographic appearance of the hepatic vasculature. Prior cholecystectomy. CT: Significant periportal edema and trace periduodenal fluid. This is nonspecific and may suggest aggressive volume resuscitation. Correlate with lipase to exclude pancreatitis. Alternatively, given apparent wall thickening of the duodenum, this could represent duodenitis. Duodenal diverticulum though the inflammatory change does not appear centered around this. Prominence of biliary ducts may relate to a reservoir effect in the post cholecystectomy state. Correlate clinically to exclude ascending cholangitis. Diverticulosis. No evidence of diverticulitis. Large hilar hernia containing stomach and transverse colon. No bowel obstruction. Past Medical/Surgical History Medical Problems: (1) Elevated LFTs Status: Acute (2) Pancreatitis Status: Acute Past Medical History: Anxiety Cervantes's cyst of knee IGERD Hiatal hernia Hypertension Past Surgical History: History of total bilateral knee replacement Hx of tonsillectomy S/P cholecystectomy S/P hysterectomy Family History Cancer FH: heart disease Hypertension Social History Smoking Status: Never Smoker Alcohol Use: none Drug Use: none Marital Status: single Housing Status: lives with family Occupation Status: retired Allergies Coded Allergies: No Known Allergies (Unverified , 11/18/16) Current Medications Home Meds and Scripts Medications Dose Route/Sig Max Daily Dose Days Date Category Prilosec (Omeprazole) 40 Mg Cap 40 Mg PO DAILY 11/18/16 Reported Citalopram Hydrobromide 10 Mg Tab 10 Mg PO DAILY 08/13/16 Reported Dyazide 37.5MG/25MG (Triamterene/HCTZ) Cap 1 Cap PO DAILY 08/13/16 Reported Zantac (Ranitidine HCl) 150 Mg Tab 150 Mg PO DAILY 04/20/11 Reported Review of Systems Constitutional: No fever, No chills, No weight loss, No weakness Respiratory: No cough, No shortness of breath Cardiac: No chest pain, No edema Abdomen: + pain (upper abd), No nausea, No vomiting, No diarrhea, No constipation, No GI bleeding Skin: No rash, No itch, No color change, No jaundice Physical Exam Date Time Temp Pulse Resp B/P (MAP) Pulse Ox O2 Delivery O2 Flow Rate FiO2 10/06/17 07:47 36.6 74 16 105/52 (69) 97 Nasal Cannula 1.5 10/06/17 04:37 36.7 77 18 145/58 (87) 93 Room Air 10/06/17 04:00 Nasal Cannula 2.0 10/06/17 00:03 36.4 77 16 100/39 (59) 97 Nasal Cannula 2.0 10/06/17 00:00 Nasal Cannula 2.0 10/05/17 21:00 36.4 83 22 97/51 93 Nasal Cannula 2.0 10/05/17 20:01 75 20 99/56 93 10/05/17 19:16 81 18 96/56 96 Room Air 10/05/17 18:30 84 20 143/80 94 Room Air 10/05/17 17:59 90 18 124/64 94 Room Air 10/05/17 16:35 36.9 80 18 160/81 97 Room Air General Appearance: no apparent distress Eyes: PERRL ENT: hearing grossly normal Neck: supple, trachea midline Respiratory/Chest: lungs clear, normal breath sounds Cardiovascular: regular rate, rhythm, no gallop Abdomen: normal bowel sounds, no organomegaly, no pulsatile mass, + tenderness (upper abd pain) Neurologic/Psych: alert, normal mood/affect, oriented x 3 Skin: warm/dry, no rash, + jaundice Laboratory Results Last 24 Hours Test 10/05/17 17:20 10/05/17 18:50 10/05/17 19:56 10/05/17 22:02 White Blood Count 4.17 K/uL Red Blood Count 5.33 M/uL Hemoglobin 17.0 g/dL Hematocrit 49.2 % Mean Corpuscular Volume 92.3 fL Mean Corpuscular Hemoglobin 31.9 pg Mean Corpuscular Hemoglobin Concent 34.6 g/dl Platelet Count 116 K/uL Mean Platelet Volume 9.7 fL Neutrophils (%) (Auto) 95.2 % Lymphocytes (%) (Auto) 4.3 % Monocytes (%) (Auto) 0.5 % Eosinophils (%) (Auto) 0.0 % Basophils (%) (Auto) 0.0 % Neutrophils # (Auto) 3.97 K/uL Lymphocytes # (Auto) 0.18 K/uL Monocytes # (Auto) 0.02 K/uL Eosinophils # (Auto) 0.00 K/uL Basophils # (Auto) 0.00 K/uL RDW Standard Deviation 51.0 fL RDW Coefficient of Variation 15.1 % Immature Granulocyte % (Auto) 0.0 % Immature Granulocyte # (Auto) 0.00 K/uL Sodium Level 139 mmol/L Potassium Level 3.4 mmol/L Chloride Level 102 mmol/L Carbon Dioxide Level 29 mmol/L Anion Gap 8.0 mmol/L Blood Urea Nitrogen 18 mg/dl Creatinine 1.14 mg/dl Est Creatinine Clear Calc Drug Dose 40.2 ml/min Estimated GFR () 51.5 Estimated GFR (Non- 44.4 BUN/Creatinine Ratio 15.7 Random Glucose 152 mg/dl Calcium Level 9.8 mg/dl Magnesium Level 1.7 mg/dl Total Bilirubin 2.6 mg/dl Direct Bilirubin 1.9 mg/dl Aspartate Amino Transf (AST/SGOT) 845 U/L Alanine Aminotransferase (ALT/SGPT) 644 U/L Alkaline Phosphatase 258 U/L Total Protein 6.9 gm/dl Albumin 3.1 gm/dl Triglycerides Level 140 mg/dl Lipase > 35652 U/L Urine Color YELLOW Urine Appearance CLEAR Urine pH 5.0 Urine Specific [place] 1.010 Urine Protein NEG Urine Glucose (UA) NEG Urine Ketones NEG Urine Occult Blood 1+ Urine Nitrite NEG Urine Bilirubin 1+ Urine Urobilinogen POS Urine Leukocyte Esterase NEG Urine RBC 5-10 /hpf Urine WBC 1-5 /hpf Urine Epithelial Cells 10-20 /lpf Urine Bacteria NEG Acetaminophen Level ug/ml Hepatitis B Surface Antigen NEG Hepatitis C Antibody NEG Prothrombin Time 10.2 SECONDS Prothromb Time International Ratio 1.0 Test 10/06/17 05:18 White Blood Count 22.80 K/uL Red Blood Count 4.43 M/uL Hemoglobin 14.0 g/dL Hematocrit 41.3 % Mean Corpuscular Volume 93.2 fL Mean Corpuscular Hemoglobin 31.6 pg Mean Corpuscular Hemoglobin Concent 33.9 g/dl RDW Standard Deviation 53.4 fL RDW Coefficient of Variation 15.5 % Platelet Count 121 K/uL Mean Platelet Volume 10.1 fL Sodium Level 138 mmol/L Potassium Level 4.0 mmol/L Chloride Level 104 mmol/L Carbon Dioxide Level 26 mmol/L Anion Gap 8.0 mmol/L Blood Urea Nitrogen 25 mg/dl Creatinine 1.54 mg/dl Est Creatinine Clear Calc Drug Dose 30.2 ml/min Estimated GFR () 35.8 Estimated GFR (Non- 30.9 BUN/Creatinine Ratio 16.3 Random Glucose 121 mg/dl Calcium Level 8.7 mg/dl Total Bilirubin 4.0 mg/dl Aspartate Amino Transf (AST/SGOT) 357 U/L Alanine Aminotransferase (ALT/SGPT) 509 U/L Alkaline Phosphatase 187 U/L Total Protein 5.4 gm/dl Albumin 2.4 gm/dl Globulin 3.0 gm/dl Albumin/Globulin Ratio 0.8 Lipase 7598 U/L Impression Patient is a 82 year old female presented with suspected gallstone pancreatitis s/p edgar years ago for biliary colic w/ acute abd pain, nausea, vomiting x 24 hours. Leukocytosis, elevated lipase > 30K and TB 4. Concerning for CBD stone despite MRCP findings. concern for acute cholangitis. Plan continue ABX for acute cholangitis NPO ERCP Please convert NSS to LR 200 ml/hr Anti emetics prn Analgesia PRN Please call with acute changes, questions or concerns. Attg add: i interviewed and examined pt, reviewed chart and labs. Pt with abrupt onset of abd pain, w/u shows increased bili, rising transaminases and WBC , MRCP suggestive of choledocholith. Plan ERCP today.
[2017-10-06] MEDS ORDERED: INDOMETHACIN 50 MG SUPP PR ONE ×2 (10:30→16:30)
--- NOTE | 2017-10-06 10:54 | Surgery Consultation ---
Consultation Date of Consultation: Oct 06, 2017. Attending Physician: Macro A Vásquez M.D. Reason for Consultation: Pancreatitis, elevated lfts and bilirubin, cholangitis History of Present Illness Selena is a pleasant 82-year-old female who presented to the emergency room last evening with complaints of persistent abdominal pain starting yesterday morning. Abdominal pain was in the midline radiating straight to her back. Describes the pain as sharp in nature. States she felt like it was similar to previous gallbladder pain originally. Noticed some chills and sweating. She was nauseous but no vomiting. She had a bowel movement in the morning which was normal. No evidence of change in color of stools or no blood. She has a history of cholecystectomy laparoscopically roughly in 1978. No postcholecystectomy problems. Her procedure was done at [facility]. She denies of any fevers, chest pain, breathing difficulties, shortness of breath, vomiting, changes in bowel habits, diarrhea, constipation, melena, hematochezia , difficulty urinating, blood in the urine, numbness, weakness or rash. Emergency room workup included labs which showed no leukocytosis. CMP showed elevated total bilirubin at 2.6. LFTs elevated with LST at 845, ALT at 644, alk phosphatase at 258, and lipase elevated greater than 30,000. CT scan of the abdomen pelvis without contrast showed significant periportal edema and trace periduodenal fluid. This is nonspecific and may suggest aggressive volume resuscitation. Wall thickening of the duodenum could represent duodenitis. There is prominence of the biliary ducts which could be a reservoir effect in the postcholecystectomy state. Large hiatal hernia containing stomach and transverse colon however no evidence of bowel obstruction. She then underwent an limited gallbladder ultrasound which showed common bile duct measuring 8 mm within normal limit limits and postcholecystectomy status and patient age. Normal appearance of the hepatic vasculature. MRCP showed mild biliary ductal dilatation common bile duct measuring 9 mm, mild pancreatic ductal dilatation at 4 mm, equivocal small filling defect within the cystic duct remnant, and distal common bile duct meniscus sign in which a small impacted calculus cannot be excluded. MRCP also showed multiple pancreatic lesions representing IPMNs. Improvement of LFTS and lipase today however elevation in Total bilirubin to 4.0 from 2.6. Elevated leukocytosis to 22K today. Patient states she is feeling better than when she came to the emergency room. Has some tenderness in her abdomen but no pain. No nausea or vomiting. No fevers or chills. Past Medical/Surgical History Past Medical History: (1) Anxiety (2) Cervantes's cyst of knee (3) CKD (chronic kidney disease), stage III (4) GERD (gastroesophageal reflux disease) (5) Hiatal hernia (6) Hypertension Past Surgical History: 1. Laparoscopic Cholecystectomy 2. Bilateral total knee replacements 3. Hysterectomy 4. Tonsillectomy Family History Cancer FH: heart disease Hypertension Social History Smoking Status: Never Smoker Alcohol Use: none Drug Use: none Marital Status: single Housing Status: lives with family Occupation Status: retired Allergies Coded Allergies: No Known Allergies (Unverified , 11/18/16) Home Medications Scheduled Citalopram Hydrobromide (Citalopram Hydrobromide), 10 MG PO DAILY Omeprazole (Prilosec), 40 MG PO DAILY Ranitidine (Zantac), 150 MG PO DAILY Triamterene/Hctz (Dyazide 37.5MG/25MG), 1 CAP PO DAILY Current Inpatient Medications Current Inpatient Medications Medications (Trade) Dose Ordered Sig/Rhiannon Route Start Time Stop Time Status Last Admin Dose Admin Ondansetron HCl (Zofran Inj) 4 mg Q6H PRN IV 10/05/17 19:15 11/04/17 19:14 10/06/17 10:13 4 MG Miscellaneous Information (Consult) 1 ea UD PRN N/A 10/05/17 20:00 11/04/17 19:59 Piperacillin Sod/ Tazobactam Sod 3.375 gm/Dextrose 115 ml @ 28.75 mls/ hr Q8H IV 10/06/17 02:00 10/07/17 23:59 10/06/17 09:46 28.75 MLS/HR Hydromorphone HCl (Dilaudid Inj) 0.5 mg Q6H PRN IV 10/05/17 20:30 10/19/17 20:29 10/06/17 10:09 0.5 MG Pantoprazole Sodium 40 mg/ Syringe 10 ml @ 5 mls/min DAILY@11 IV 10/05/17 21:00 11/04/17 20:59 10/05/17 21:45 5 MLS/MIN Lorazepam (Ativan Inj) 0.5 mg UD PRN IV 10/05/17 21:45 11/04/17 21:44 Lactated Ringer's 1,000 ml @ 200 mls/hr Q5H IV 10/06/17 10:30 11/05/17 10:29 Review of Systems Constitutional: + chills, + sweats, No fever Respiratory: No cough, No shortness of breath Cardiovascular: No chest pain Abdomen: + pain, + nausea, No vomiting, No diarrhea, No constipation, No GI bleeding Genitourinary - Female: No dysuria, No hematuria Hematologic / Lymphatic: No abnormal bleeding/bruising Integumentary: No rash Physical Exam Date Time Temp Pulse Resp B/P (MAP) Pulse Ox O2 Delivery O2 Flow Rate FiO2 10/06/17 07:47 36.6 74 16 105/52 (69) 97 Nasal Cannula 1.5 10/06/17 04:37 36.7 77 18 145/58 (87) 93 Room Air 10/06/17 04:00 Nasal Cannula 2.0 10/06/17 00:03 36.4 77 16 100/39 (59) 97 Nasal Cannula 2.0 10/06/17 00:00 Nasal Cannula 2.0 10/05/17 21:00 36.4 83 22 97/51 93 Nasal Cannula 2.0 10/05/17 20:01 75 20 99/56 93 10/05/17 19:16 81 18 96/56 96 Room Air 10/05/17 18:30 84 20 143/80 94 Room Air 10/05/17 17:59 90 18 124/64 94 Room Air 10/05/17 16:35 36.9 80 18 160/81 97 Room Air General Appearance: WD/WN, no apparent distress Head: normocephalic, atraumatic Eyes: sclerae normal, + pertinent finding (anicteric) ENT: hearing grossly normal Neck: supple, trachea midline Respiratory/Chest: lungs clear, normal breath sounds, no respiratory distress, no accessory muscle use Cardiovascular: regular rate, rhythm, no murmur Abdomen/GI: normal bowel sounds, non tender, soft, no organomegaly, no pulsatile mass Back: normal inspection Extremities/Musculoskelatal: no pedal edema Neurologic/Psych: alert, normal mood/affect, oriented x 3 Skin: normal color, warm/dry, no rash Laboratory Results Last 24 Hours Test 10/05/17 17:20 10/05/17 18:50 10/05/17 19:56 10/05/17 22:02 White Blood Count 4.17 K/uL Red Blood Count 5.33 M/uL Hemoglobin 17.0 g/dL Hematocrit 49.2 % Mean Corpuscular Volume 92.3 fL Mean Corpuscular Hemoglobin 31.9 pg Mean Corpuscular Hemoglobin Concent 34.6 g/dl Platelet Count 116 K/uL Mean Platelet Volume 9.7 fL Neutrophils (%) (Auto) 95.2 % Lymphocytes (%) (Auto) 4.3 % Monocytes (%) (Auto) 0.5 % Eosinophils (%) (Auto) 0.0 % Basophils (%) (Auto) 0.0 % Neutrophils # (Auto) 3.97 K/uL Lymphocytes # (Auto) 0.18 K/uL Monocytes # (Auto) 0.02 K/uL Eosinophils # (Auto) 0.00 K/uL Basophils # (Auto) 0.00 K/uL RDW Standard Deviation 51.0 fL RDW Coefficient of Variation 15.1 % Immature Granulocyte % (Auto) 0.0 % Immature Granulocyte # (Auto) 0.00 K/uL Sodium Level 139 mmol/L Potassium Level 3.4 mmol/L Chloride Level 102 mmol/L Carbon Dioxide Level 29 mmol/L Anion Gap 8.0 mmol/L Blood Urea Nitrogen 18 mg/dl Creatinine 1.14 mg/dl Est Creatinine Clear Calc Drug Dose 40.2 ml/min Estimated GFR () 51.5 Estimated GFR (Non- 44.4 BUN/Creatinine Ratio 15.7 Random Glucose 152 mg/dl Calcium Level 9.8 mg/dl Magnesium Level 1.7 mg/dl Total Bilirubin 2.6 mg/dl Direct Bilirubin 1.9 mg/dl Aspartate Amino Transf (AST/SGOT) 845 U/L Alanine Aminotransferase (ALT/SGPT) 644 U/L Alkaline Phosphatase 258 U/L Total Protein 6.9 gm/dl Albumin 3.1 gm/dl Triglycerides Level 140 mg/dl Lipase > 10742 U/L Urine Color YELLOW Urine Appearance CLEAR Urine pH 5.0 Urine Specific [place] 1.010 Urine Protein NEG Urine Glucose (UA) NEG Urine Ketones NEG Urine Occult Blood 1+ Urine Nitrite NEG Urine Bilirubin 1+ Urine Urobilinogen POS Urine Leukocyte Esterase NEG Urine RBC 5-10 /hpf Urine WBC 1-5 /hpf Urine Epithelial Cells 10-20 /lpf Urine Bacteria NEG Acetaminophen Level ug/ml Hepatitis B Surface Antigen NEG Hepatitis C Antibody NEG Prothrombin Time 10.2 SECONDS Prothromb Time International Ratio 1.0 Test 10/06/17 05:18 White Blood Count 22.80 K/uL Red Blood Count 4.43 M/uL Hemoglobin 14.0 g/dL Hematocrit 41.3 % Mean Corpuscular Volume 93.2 fL Mean Corpuscular Hemoglobin 31.6 pg Mean Corpuscular Hemoglobin Concent 33.9 g/dl RDW Standard Deviation 53.4 fL RDW Coefficient of Variation 15.5 % Platelet Count 121 K/uL Mean Platelet Volume 10.1 fL Sodium Level 138 mmol/L Potassium Level 4.0 mmol/L Chloride Level 104 mmol/L Carbon Dioxide Level 26 mmol/L Anion Gap 8.0 mmol/L Blood Urea Nitrogen 25 mg/dl Creatinine 1.54 mg/dl Est Creatinine Clear Calc Drug Dose 30.2 ml/min Estimated GFR () 35.8 Estimated GFR (Non- 30.9 BUN/Creatinine Ratio 16.3 Random Glucose 121 mg/dl Calcium Level 8.7 mg/dl Total Bilirubin 4.0 mg/dl Aspartate Amino Transf (AST/SGOT) 357 U/L Alanine Aminotransferase (ALT/SGPT) 509 U/L Alkaline Phosphatase 187 U/L Total Protein 5.4 gm/dl Albumin 2.4 gm/dl Globulin 3.0 gm/dl Albumin/Globulin Ratio 0.8 Lipase 7598 U/L CT scan Abdomen and pelvis without contrast IMPRESSION: 1. Significant periportal edema and trace periduodenal fluid. This is nonspecific and may suggest aggressive volume resuscitation. Correlate with lipase to exclude pancreatitis. Alternatively, given apparent wall thickening of the duodenum, this could represent duodenitis. 2. Duodenal diverticulum though the inflammatory change does not appear centered around this. 3. Prominence of biliary ducts may relate to a reservoir effect in the post cholecystectomy state. Correlate clinically to exclude ascending cholangitis. 4. Diverticulosis. No evidence of diverticulitis. 5. Large hilar hernia containing stomach and transverse colon. No bowel obstruction. 6. Osteopenia. Gallbladder US, Hepatic duplex IMPRESSION: 1. Nonspecific mildly heterogeneous appearance of the liver. 2. Normal sonographic appearance of the hepatic vasculature. 3. Prior cholecystectomy. MRCP IMPRESSION: 1. Large hiatal hernia containing portions of stomach and colon 2. 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 Mild biliary ductal dilatation. The common bile duct measures 9 mm. 4. Mild pancreatic ductal dilatation (4 mm) 5. Mild splenomegaly 6. Equivocal small filling defect within the cystic duct remnant 7. Distal common bile duct meniscus sign. A small impacted calculus cannot be excluded. Assessment & Plan 82-year-old female who presented to the emergency room with 1 day complaint of epigastric abdominal pain with radiation to the back. Labs showed elevated LFTs , total bilirubin, and lipase greater than 30,000. CT scan, ultrasound, MRCP showing dilated common bile duct at 9 mm with possible distal common bile duct filling defect, slightly dilated pancreatic duct with multiple IPMNs. She is status post laparoscopic cholecystectomy in 1978. Increase in total bilirubin of 4.0 today with an elevated leukocytosis of 22,000. There is concern for common bile duct obstruction with associated ascending cholangitis and acute pancreatitis. Plan: Recommend ERCP for possible sphincterotomy and biliary stent placement. Continue IV antibiotics, n.p.o., pain management as needed. Continue IV fluids at 200 mls/hr Continue current medical management. We will continue to follow. Given postcholecystectomy state, there is no acute surgical intervention required. Dr. Mcdermott has seen and examined patient and agrees with above.
[2017-10-06] MEDS: LACTATED RINGER'S 1000ML 1,000 ML IV SCH ×4 (11:15→23:04)
[2017-10-06] MEDS: PANTOprazole INJ 40 MG in SYRINGE 0 ML IV SCH (11:16)
[2017-10-06] MEDS ORDERED: FENTANYL CITRATE INJ 50 MCG/1 ML 2 ML VIAL IV PRN (16:15)
[2017-10-06] MEDS ORDERED: EpHEDrine SULFATE INJ 50 MG/ML AMP IV PRN (16:15)
[2017-10-06] MEDS ORDERED: MEPERIDINE HCL 25 MG/ML CARP IV PRN (16:15)
[2017-10-06] MEDS ORDERED: ONDANSETRON INJ 2 MG/ML 2 ML VIAL IV PRN (16:15)
[2017-10-06] MEDS ORDERED: HYDROmorphone INJ 2 MG/ML SYR/VIAL IV PRN (16:15)
[2017-10-06] MEDS ORDERED: LABETALOL HCL IV 5 MG/ML 20ML IV PRN (16:15)
[2017-10-06] MEDS ORDERED: ATROPINE SULFATE 0.1 MG/ML 5ML SYR IV PRN (16:15)
--- NOTE | 2017-10-06 16:16 | Endo History and Physical ---
History & Physical Date of Service: Oct 06, 2017. Chief Complaint: Abdominal pain Referring Physician: History of Present Illness Patient presented with evidence of pancreatitis last evening. Morning she was found to have increased bilirubin, leukocytosis and imaging findings suggestive of gallstone impaction. She has been referred for ERCP today for suspected cholangitis and gallstone pancreatitis. Past Surgical History Hx Abdominal Surgery: Yes (Cholecystectomy) Hx Orthopedic: Yes (bilateral TKA) Social History Smoking Status: Never Smoker Hx Substance Use: No Hx Alcohol Use: No Allergies Coded Allergies: No Known Allergies (Unverified , 11/18/16) Current Medications Reported Home Medications Medications Dose Route/Sig Max Daily Dose Days Date Category Prilosec (Omeprazole) 40 Mg Cap 40 Mg PO DAILY 11/18/16 Reported Citalopram Hydrobromide 10 Mg Tab 10 Mg PO DAILY 08/13/16 Reported Dyazide 37.5MG/25MG (Triamterene/HCTZ) Cap 1 Cap PO DAILY 08/13/16 Reported Zantac (Ranitidine HCl) 150 Mg Tab 150 Mg PO DAILY 04/20/11 Reported Vital Signs Weight (Kilograms): 94.200 Height (Feet): 5 Height (Inches): 3.00 Date Time Temp Pulse Resp B/P (MAP) Pulse Ox O2 Delivery O2 Flow Rate FiO2 10/06/17 15:41 36.4 75 15 113/49 (70) 95 Nasal Cannula 2.0 10/06/17 12:00 Room Air 10/06/17 11:52 36.6 70 20 111/43 (65) 97 Nasal Cannula 1.5 10/06/17 08:30 Room Air 10/06/17 07:47 36.6 74 16 105/52 (69) 97 Nasal Cannula 1.5 10/06/17 04:37 36.7 77 18 145/58 (87) 93 Room Air 10/06/17 04:00 Nasal Cannula 2.0 10/06/17 00:03 36.4 77 16 100/39 (59) 97 Nasal Cannula 2.0 10/06/17 00:00 Nasal Cannula 2.0 10/05/17 21:00 36.4 83 22 97/51 93 Nasal Cannula 2.0 10/05/17 20:01 75 20 99/56 93 10/05/17 19:16 81 18 96/56 96 Room Air 10/05/17 18:30 84 20 143/80 94 Room Air 10/05/17 17:59 90 18 124/64 94 Room Air 10/05/17 16:35 36.9 80 18 160/81 97 Room Air Physical Exam General Appearance: + mild distress Respiratory/Chest: Auscultation: breath sounds normal Cardiovascular: Heart Auscultation: RRR, II/ JORY Abdomen: Inspection & Palpation: RUQ tenderness Assessment and Plan We are planning to do upper endoscopy and ERCP this afternoon. Given the imaging findings we will do an upper endoscopy first to evaluate her stomach. We discussed the risks of the procedure to include bleeding, infection, perforation, pain, failed cannulation and need for follow-up studies.
[2017-10-06] MEDS ORDERED: GLYCOPYRROLATE INJ 0.2 MG/ML VIAL ONE ×2 (16:24→16:59)
[2017-10-06] MEDS ORDERED: LIDOCAINE HCL 2% 2 ML VIAL (20MG/ML) ONE (16:24)
[2017-10-06] MEDS ORDERED: ONDANSETRON INJ 2 MG/ML 2 ML VIAL ONE (16:24)
[2017-10-06] MEDS ORDERED: PROPOFOL IV EMULSION 10 MG/ML 20 ML VIAL IV ONE (16:24)
[2017-10-06] MEDS ORDERED: DEXAMETHASONE SOD INJ 4 MG/ML VIAL ONE (16:24)
[2017-10-06] MEDS ORDERED: NEOSTIGMINE METHYLSULFATE 5 MG/5 ML SYR ONE (16:24)
[2017-10-06] MEDS ORDERED: FENTANYL CITRATE INJ 50 MCG/1 ML 2 ML VIAL ONE (16:25)
[2017-10-06] MEDS ORDERED: MIDAZOLAM HCL 1 MG/ML 2ML VIAL ONE (16:25)
[2017-10-06] MEDS ORDERED: PHENYLEPHRINE 100MCG/ML 5ML SYR ONE (16:58)
[2017-10-06] MEDS ORDERED: ROCURONIUM BROMIDE 10 MG/ML 5 ML VIAL IV ONE (16:58)
[2017-10-06] MEDS ORDERED: EpHEDrine SULFATE INJ 50 MG/ML AMP ONE (17:08)
[2017-10-06] MEDS ORDERED: SODIUM CHLORIDE 0.9% INJ 10 ML VIAL ONE (17:08)
--- NOTE | 2017-10-06 17:23 | [facility] Post Operative Brief Note ---
Immediate Operative Summary Operative Date Oct 06, 2017. Pre-Operative Diagnosis Common bile duct stones, cholangitis Post-Operative Diagnosis Cholangitis CBD stones / sludge Partially intrathoracic stomach Procedure(s) Performed EGD ERCP Surgeon Dr Ankit Del Valle Care Asst Surgeon(s) none Estimated Blood Loss None Findings Consistent with Post-Op Diagnosis Specimens see endo staff notes Drains None Anesthesia Type General Complication(s) none Disposition Accompanied Pt To Recover: no Disposition: Recovery Room / PACU
--- NOTE | 2017-10-06 17:45 | DIAGNOSTIC IMAGING REPORT ---
ERCP BILIARY DUCTAL CLINICAL HISTORY: DUCT EXPLORATION COMPARISON STUDY: MRCP 10/06/2017 FLUOROSCOPY TIME: 1.3 minutes. FINDINGS: Partial retrograde opacification of the biliary ductal system. Mild prominence of the common bile duct. The intrahepatic ducts are not diagnostically opacified. This is followed by placement of a distal common duct stent. There is a small potential filling defect on several interval images within The distal common duct but this area is not well seen. IMPRESSION: 1. Mild biliary ductal distention. 2. Successful placement of a common bile duct stent. The above report was generated using voice recognition software. It may contain grammatical, syntax or spelling errors. Electronically signed by: Amadou Henriquez M.D. 10/06/2017 5:43 PM Dictated Date/Time: 10/06/2017 5:41 PM
--- NOTE | 2017-10-06 17:48 | GI REPORT ---
Procedure Date: 10/06/2017 5:44 PM Procedure: Upper GI endoscopy Indications: Abnormal CT of the GI tract Medicines: General Anesthesia Complications: No immediate complications. Estimated blood loss: Minimal. Estimated Blood Loss: Estimated blood loss was minimal. Procedure: Pre-Anesthesia Assessment: - Prior to the procedure, a History and Physical was performed, and patient medications, allergies and sensitivities were reviewed. The patient's tolerance of previous anesthesia was reviewed. - The risks and benefits of the procedure and the sedation options and risks were discussed with the patient. All questions were answered and informed consent was obtained. - Patient identification and proposed procedure were verified prior to the procedure by the physician, the nurse and the astronaut mission specialist. The procedure was verified in the procedure room. - Pre-procedure physical examination revealed no contraindications to sedation. - ASA Grade Assessment: III - A patient with severe systemic disease. - After reviewing the risks and benefits, the patient was deemed in satisfactory condition to undergo the procedure. - The anesthesia plan was to use general anesthesia. - Immediately prior to administration of medications, the patient was re-assessed for adequacy to receive sedatives. - The heart rate, respiratory rate, oxygen saturations, blood pressure, adequacy of pulmonary ventilation, and response to care were monitored throughout the procedure. - The physical status of the patient was re-assessed after the procedure. After obtaining informed consent, the endoscope was passed under direct vision. Throughout the procedure, the patient's blood pressure, pulse, and oxygen saturations were monitored continuously. The scope was introduced through the mouth, and advanced to the third part of duodenum. The upper GI endoscopy was accomplished without difficulty. The patient tolerated the procedure well. Findings: The examined esophagus was moderately tortuous. A large hiatal hernia was found. The proximal extent of the gastric folds (end of tubular esophagus) was 30 cm from the incisors. The hiatal narrowing was 42 cm from the incisors. The Z-line was 30 cm from the incisors. A majority of the stomach was located in the chest making identification of the pylorus difficult. The examined duodenum was normal. Placement of a long 0.035 inch Stiff Jagwire was attempted to allow for placment of a duodenosocpe. This passed successfully. Estimated blood loss: none. Impression: - Tortuous esophagus. - Large hiatal hernia. - Normal examined duodenum. - No specimens collected. Recommendation: - Perform an ERCP today. - Imaging could not be obtained due to problems with Provation Ankit Del Valle D.O. Ankit Del Valle, 10/06/2017 5:48:16 PM This report has been signed electronically. Note Initiated On: 10/06/2017 5:44 PM I attest to the content of the Intraoperative Record and orders documented therein, exceptions below
--- NOTE | 2017-10-06 17:55 | GI REPORT ---
Procedure Date: 10/06/2017 5:48 PM Procedure: ERCP Indications: Abdominal pain of suspected biliary origin, Abnormal MRCP, Suspected ascending cholangitis Medicines: General Anesthesia Complications: No immediate complications. Estimated blood loss: Minimal. Estimated Blood Loss: Estimated blood loss was minimal. Procedure: Pre-Anesthesia Assessment: - Prior to the procedure, a History and Physical was performed, and patient medications, allergies and sensitivities were reviewed. The patient's tolerance of previous anesthesia was reviewed. - The risks and benefits of the procedure and the sedation options and risks were discussed with the patient. All questions were answered and informed consent was obtained. - Patient identification and proposed procedure were verified prior to the procedure by the physician, the nurse and the cold meat cook. The procedure was verified in the procedure room. - Pre-procedure physical examination revealed no contraindications to sedation. - ASA Grade Assessment: III - A patient with severe systemic disease. - After reviewing the risks and benefits, the patient was deemed in satisfactory condition to undergo the procedure. - The anesthesia plan was to use general anesthesia. - Immediately prior to administration of medications, the patient was re-assessed for adequacy to receive sedatives. - The heart rate, respiratory rate, oxygen saturations, blood pressure, adequacy of pulmonary ventilation, and response to care were monitored throughout the procedure. - The physical status of the patient was re-assessed after the procedure. After obtaining informed consent, the scope was passed under direct vision. Throughout the procedure, the patient's blood pressure, pulse, and oxygen saturations were monitored continuously. The Scope was introduced through the mouth, and advanced to the duodenum and used to cannulate the bile duct. The ERCP was performed with moderate difficulty due to abnormal anatomy. Successful completion of the procedure was aided by see EGD note. Findings: The battery loader film was normal. The esophagus was successfully intubated under direct vision without detailed examination of the pharynx, larynx, and associated structures, and upper GI tract. The upper GI tract was grossly normal. Pus was emerging from the major papilla. The bile duct was deeply cannulated with the short-nosed traction sphincterotome (Omni 35) and 0.035 in MET2 guidewire during the 2nd attempt (PD not cannulated or injected). Contrast was injected. I personally interpreted the bile duct images. Contrast extended to the entire biliary tree. A cholecystectomy had been performed. The main bile duct was diffusely dilated. The largest diameter was 10 mm. The biliary orifice was stenotic. This appeared benign. The lower third of the main bile duct contained filling defect(s) thought to be a stone and sludge. Biliary sphincterotomy was made with a monofilament Fusion OMNI sphincterotome using ERBE electrocautery. There was no post-sphincterotomy bleeding. The lower third of the main bile duct was successfully dilated with a 10 mm balloon dilator held inflated for 1 minute. To discover objects, the biliary tree was swept with an 8.5 mm to 15 mm balloon starting at the bifurcation. Sludge was swept from the duct. A few stones were removed. No stones remained. Pus was swept from the duct. Due to cholangitis, one 10 Fr by 8 cm biliary stent with a single external flap and a single internal flap was placed 8 cm into the common bile duct. Bile and pus flowed through the stent. The stent was in good position. Indomethacin 100 mg was given via suppository to decrease the risk of post-ERCP pancreatitis (PEP). The endoscope was withdrawn from the patient. Impression: - Choledocholithiasis was found. Complete removal was accomplished by biliary sphincterotomy and balloon extraction. - The biliary tree was swept and pus was found. - One biliary stent was placed into the common bile duct. - Indomethacin given to decrease risk of post-ERCP pancreatitis. Recommendation: - Avoid aspirin and nonsteroidal anti-inflammatory medicines today. - Clear liquid diet today. - Use broad spectrum antibiotics for 2 weeks. - Observe patient's clinical course following today's ERCP with therapeutic intervention. - Repeat ERCP in 6 weeks to remove stent. Ankit Del Valle D.O. Ankit Del Valle, 10/06/2017 5:54:38 PM This report has been signed electronically. Note Initiated On: 10/06/2017 5:48 PM I attest to the content of the Intraoperative Record and orders documented therein, exceptions below
--- NOTE | 2017-10-06 17:57 | Progress Note ---
Progress Note Date of Service Oct 06, 2017. Progress Note The patient underwent ERCP today for suspected cholangitis. Findings Partially intrathoracic stomach Papillary stenosis Stone and sludge material within common bile duct Pus within the bile duct consistent with cholangitis Recommendations Continue IV antibiotics for another 48 hours and transition to oral for a total of 2 weeks Repeat ERCP in 6 weeks Clear liquid diet today Advance diet as tolerated over the weekend Avoid nonsteroidals for 1 week Consider referral to a surgeon given the thoracic stomach and herniation of colon into the chest (type 4 paraesophageal hernia)
--- NOTE | 2017-10-06 18:19 | Anesthesiology Progress Note ---
Anesthesia Post Op Note Date & Time Oct 06, 2017 at 18:19 Vital Signs Pain Intensity: 0 Vital Signs Past 12 Hours Date Time Temp Pulse Resp B/P (MAP) Pulse Ox O2 Delivery O2 Flow Rate FiO2 10/06/17 18:06 36.8 116/50 95 10/06/17 18:05 73 17 10/06/17 18:05 71 17 94 10/06/17 18:01 115/47 10/06/17 18:00 77 18 94 10/06/17 18:00 78 18 10/06/17 17:56 114/56 10/06/17 17:55 74 16 98 10/06/17 17:55 Room Air 10/06/17 17:55 74 16 10/06/17 17:51 118/55 10/06/17 17:50 75 16 98 10/06/17 17:50 75 16 10/06/17 17:46 114/70 10/06/17 17:45 79 20 99 10/06/17 17:45 82 20 10/06/17 17:43 115/55 10/06/17 17:35 36.4 87 16 124/47 98 Oxymask 7 10/06/17 15:41 36.4 75 15 113/49 (70) 95 Nasal Cannula 2.0 10/06/17 12:00 Room Air 10/06/17 11:52 36.6 70 20 111/43 (65) 97 Nasal Cannula 1.5 10/06/17 08:30 Room Air 10/06/17 07:47 36.6 74 16 105/52 (69) 97 Nasal Cannula 1.5 Notes Mental Status: alert / awake / arousable, participated in evaluation Pt Amnestic to Procedure: Yes Nausea / Vomiting: adequately controlled Pain: adequately controlled Airway Patency, RR, SpO2: stable & adequate BP & HR: stable & adequate Hydration State: stable & adequate Anesthetic Complications: no major complications apparent
--- NOTE | 2017-10-06 18:38 | Progress Note ---
Progress Note Date of Service Oct 06, 2017. Progress Note Subjective: Patient is s/p gastroenterology procedure: upper endoscopy and ERCP. Denies acute pain or shortness of breath. Physical Exam General: no acute distress Heart: Regular rate Lungs: CTABL, no wheezing Abdomen: truncal obesity, soft, nontender Extremities: no edema Assessment and plan 82-year-old female, status post laparoscopic cholecystectomy in 1978, who presented to the emergency room with 1 day complaint of epigastric abdominal pain with radiation to the back. Labs showed elevated LFTs, total bilirubin, and lipase greater than 30,000. 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 Increase in total bilirubin of 4.0 with an elevated leukocytosis of 22,000 Patient has been on IV Zosyn thought initially to have Pancreatitis but likely the symptoms from cholangitis ERCP/ Endoscopy for cholangitis: Partially intrathoracic stomach Papillary stenosis Stone and sludge material within common bile duct Pus within the bile duct consistent with cholangitis As per gastroenterology "Continue IV antibiotics for another 48 hours and transition to oral for a total of 2 weeks Repeat ERCP in 6 weeks Clear liquid diet today Advance diet as tolerated over the weekend Avoid nonsteroidals for 1 week Consider referral to a surgeon given the thoracic stomach and herniation of colon into the chest (type 4 paraesophageal hernia)" Have discussed above gastroenterology findings and recommendations with the patient and her family Acute kidney injury continue IV fluids history of hypertension BP currently stable hold Maxide due to acute illness GERD, HERNIA IV PPI ANXIETY Hold citalopram for now DVT PROPHYLAXIS -SCDs CODE STATUS -Patient is DNR
[2017-10-07] MEDS: PIPERACILL/TAZOBAC IV 3.375 GM in DEXTROSE 5% 100ML 100 ML IV SCH ×3 (02:24→18:45)
[2017-10-07 03:38] VITALS: BP 148/59; PULSE 18; TEMP 37; O2SAT 96
[2017-10-07] MEDS: LACTATED RINGER'S 1000ML 1,000 ML IV SCH (06:05)
[2017-10-07 07:05] LABS: HEMATOCRIT 38.2 % (37-47); HEMOGLOBIN 12.9 g/dL (12.0-16.0); MEAN CELL VOLUME 91.8 fL (80-100); MEAN CORPUSCULAR HGB CONC 33.8 g/dl (32-36); RED CELL DISTRIBUTION WIDTH CV 15.8 % (11.5-14.5); RED CELL DISTRIBUTION WIDTH SD 53.6 fL (36.4-46.3); WHITE BLOOD COUNT 12.59 K/uL (4.8-10.8)
[2017-10-07 07:13] LABS: ALBUMIN 2.2 gm/dl (3.4-5.0); CALCIUM 8.2 mg/dl (8.5-10.1); CREATININE 1.66 mg/dl (0.60-1.20); POTASSIUM 4.6 mmol/L (3.5-5.1)
[2017-10-07 07:17] LABS: BASO % 0.1 %; BASO ABS # 0.01 K/uL (0-0.2); IG# 0.04 K/uL (0.00-0.02); MEAN PLATELET VOLUME 10.7 fL (7.4-10.4); MONO % 2.1 %; MONO ABS # 0.26 K/uL (0.11-0.59); NEUT % 93.5 %; NEUT ABS # 11.78 K/uL (1.4-6.5); PLATELET COUNT 96 K/uL (130-400)
[2017-10-07 07:34] LABS: TOTAL PROTEIN 5.6 gm/dl (6.4-8.2)
[2017-10-07 08:07] VITALS: BP 142/61; PULSE 65; TEMP 37.1; O2SAT 97
[2017-10-07] MEDS: SODIUM CHLORIDE 0.9% 1000ML 1,000 ML IV SCH ×2 (10:04→15:04)
[2017-10-07] MEDS: PANTOprazole INJ 40 MG in SYRINGE 0 ML IV SCH (10:26)
--- NOTE | 2017-10-07 11:01 | Surgery Progress Note ---
Surgery Progress Note Date of Service Oct 07, 2017. Subjective Post OP Day: 1 (s/p ERCP with biliary stent placement) + feeling well, + pain controlled, + diet (clear liquids), No complaints, No nausea, No vomiting Objective Vital Signs: Date Time Temp Pulse Resp B/P (MAP) Pulse Ox O2 Delivery O2 Flow Rate FiO2 10/07/17 08:07 37.1 65 17 142/61 (88) 97 Room Air 10/07/17 04:00 Room Air 10/07/17 03:38 37.0 18 18 148/59 (88) 96 Nasal Cannula 2.0 10/07/17 00:00 Room Air 10/06/17 23:33 36.5 70 18 121/55 (77) 96 Nasal Cannula 2.0 10/06/17 20:00 Room Air 10/06/17 18:30 36.5 67 20 132/54 (80) 97 Nasal Cannula 2.0 10/06/17 18:17 36.6 66 18 118/49 (72) 97 Nasal Cannula 2.0 10/06/17 18:06 36.8 116/50 95 10/06/17 18:05 73 17 10/06/17 18:05 71 17 94 10/06/17 18:01 115/47 10/06/17 18:00 77 18 94 10/06/17 18:00 78 18 10/06/17 17:56 114/56 10/06/17 17:55 74 16 98 10/06/17 17:55 Room Air 10/06/17 17:55 74 16 10/06/17 17:51 118/55 10/06/17 17:50 75 16 98 10/06/17 17:50 75 16 10/06/17 17:46 114/70 10/06/17 17:45 79 20 99 10/06/17 17:45 82 20 10/06/17 17:43 115/55 10/06/17 17:35 36.4 87 16 124/47 98 Oxymask 7 10/06/17 15:41 36.4 75 15 113/49 (70) 95 Nasal Cannula 2.0 10/06/17 12:00 Room Air 10/06/17 11:52 36.6 70 20 111/43 (65) 97 Nasal Cannula 1.5 General Appearance: WD/WN, no apparent distress Head: normocephalic, atraumatic Neck: trachea midline Respiratory/Chest: no respiratory distress, no accessory muscle use Abdomen: non tender, non distended, soft, no organomegaly, no pulsatile mass Laboratory Results: Results Past 24 Hours Test 10/07/17 05:21 Range/Units White Blood Count 12.59 4.8-10.8 K/uL Red Blood Count 4.16 4.2-5.4 M/uL Hemoglobin 12.9 12.0-16.0 g/dL Hematocrit 38.2 37-47 % Mean Corpuscular Volume 91.8 80-100 fL Mean Corpuscular Hemoglobin 31.0 25-34 pg Mean Corpuscular Hemoglobin Concent 33.8 32-36 g/dl Platelet Count 96 130-400 K/uL Mean Platelet Volume 10.7 7.4-10.4 fL Neutrophils (%) (Auto) 93.5 % Lymphocytes (%) (Auto) 4.0 % Monocytes (%) (Auto) 2.1 % Eosinophils (%) (Auto) 0.0 % Basophils (%) (Auto) 0.1 % Neutrophils # (Auto) 11.78 1.4-6.5 K/uL Lymphocytes # (Auto) 0.50 1.2-3.4 K/uL Monocytes # (Auto) 0.26 0.11-0.59 K/uL Eosinophils # (Auto) 0.00 0-0.5 K/uL Basophils # (Auto) 0.01 0-0.2 K/uL RDW Standard Deviation 53.6 36.4-46.3 fL RDW Coefficient of Variation 15.8 11.5-14.5 % Immature Granulocyte % (Auto) 0.3 % Immature Granulocyte # (Auto) 0.04 0.00-0.02 K/uL Toxic Vacuolation OCCASIONAL Platelet Estimate DECREASED Sodium Level 136 136-145 mmol/L Potassium Level 4.6 3.5-5.1 mmol/L Chloride Level 103 98-107 mmol/L Carbon Dioxide Level 26 21-32 mmol/L Anion Gap 7.0 3-11 mmol/L Blood Urea Nitrogen 29 7-18 mg/dl Creatinine 1.66 0.60-1.20 mg/dl Est Creatinine Clear Calc Drug Dose 28.6 ml/min Estimated GFR () 32.7 Estimated GFR (Non- 28.2 BUN/Creatinine Ratio 17.2 10-20 Random Glucose 116 70-99 mg/dl Calcium Level 8.2 8.5-10.1 mg/dl Total Bilirubin 1.7 0.2-1 mg/dl Aspartate Amino Transf (AST/SGOT) 139 15-37 U/L Alanine Aminotransferase (ALT/SGPT) 351 12-78 U/L Alkaline Phosphatase 157 45-117 U/L Total Protein 5.6 6.4-8.2 gm/dl Albumin 2.2 3.4-5.0 gm/dl Globulin 3.4 2.5-4.0 gm/dl Albumin/Globulin Ratio 0.7 0.9-2 Lipase 290 73-393 U/L Assessment & Plan POD # 1 s/p ERCp with biliary stent placement -vitals stable, afebrile - leukocytosis much improved 12K today, 22K yesterday -improvement in LFTS - Lipase wnl - no abdominal pain Plan: May advance diet as tolerated avoid NSAIDs continue broad spectrum abx x2 weeks per GI recommendations Our services signing off Dr. Mcdermott has seen pt agrees with above
[2017-10-07 11:42] VITALS: BP 139/61; PULSE 70; TEMP 36.6; O2SAT 94
--- NOTE | 2017-10-07 11:50 | GASTROENTEROLOGY PROGRESS NOTE ---
DATE: 10/07/2017 Gastroenterology progress note and cross coverage for [facility]. PATIENT'S AGE: 82. SEX: Female. RACE: . ATTENDING PHYSICIAN: Dr. Marco A Vásquez. COVERING PHYSICIAN: Dr. Umberto Vogel. SUBJECTIVE: I had the pleasure of seeing Selena Quiroz in cross coverage for [facility] this morning. She is feeling much better than when she presented. She underwent an EGD and ERCP yesterday with Dr. Del Valle who did a sphincterotomy and stone removal from her common bile duct with stent placement. She has had a significant improvement in her liver panel and states that her symptoms have improved including decreased abdominal pain, nausea as well as gas pressure. She states that she did have a bowel movement since last night. She tolerated p.o. intake this morning without difficulty and feels much improved. She denies any further complaints. REVIEW OF SYSTEMS: Negative x10 system review other than pertinent positives listed in the HPI. PHYSICAL EXAMINATION: VITAL SIGNS: Today include a temp 37.1, pulse 65, respirations 17, blood pressure 142/61, pulse ox 97% on room air. GENERAL: She is awake, cooperative, chronic ill appearing, in no acute distress. CHEST: Clear to auscultation bilaterally. CARDIOVASCULAR: Regular rate and rhythm. ABDOMEN: Soft, nontender, nondistended. Positive bowel sounds. EXTREMITIES: No clubbing, cyanosis, or edema. LABORATORY DATA: White blood cell count today has decreased from 22.8 yesterday to 12.59 today. Her H and H is 12.9 and 38.2. Her bilirubin has decreased from 4 yesterday until today of 1.7. AST decreased from 357 to 139. ALT decreased from 509 to 351. Alkaline phosphatase decreased from 187 to 157. Her lipase decreased from 7598 to 290. IMPRESSION: This is an 82-year-old female, status post ERCP with stone removal and stent placement for gallstone-induced pancreatitis and cholangitis with improving symptoms. PLAN: I discussed the case in detail with Dr. Vásquez. I believe the patient should receive IV antibiotics for another 24 hours and transition to oral antibiotics as per Dr. Del Valle's request for 2 weeks. She will need a repeat ERCP in 6 weeks which will be arranged through Dr. Del Valle's office. She is to avoid NSAIDS for 1 week and she will be referred to a surgeon for evaluation secondary to her large hiatal hernia found on EGD/ERCP. Once again, thanks for allowing me to participate in the care of this patient. If you have any further questions, please do not hesitate in contacting me.
--- NOTE | 2017-10-07 12:34 | Progress Note ---
Internal Med Progress Note Date of Service: Oct 07, 2017. Provider Documentation: Subjective: Denies acute pain or shortness of breath. Physical Exam General: no acute distress Heart: Regular rate Lungs: CTABL, no wheezing Abdomen: truncal obesity, soft, nontender Extremities: no edema ASSESSMENT & PLAN: Assessment and plan 82-year-old female, status post laparoscopic cholecystectomy in 1978, who presented to the emergency room with 1 day complaint of epigastric abdominal pain with radiation to the back. Labs showed elevated LFTs, total bilirubin, and lipase greater than 30,000. 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 Increase in total bilirubin of 4.0 with an elevated leukocytosis of 22,000 ERCP/ Endoscopy on by Dr. Del Valle: diagnosed with common bile obstruction (Stone and sludge material within common bile duct) and Pus within the bile duct consistent with cholangitis, and the obstruction and inflammation causing pancreatitis as well -other findings of papillary stenosis -other findings of Partially intrathoracic stomach and gastroenterology recommends referral to a surgeon given the thoracic stomach and herniation of colon into the chest (type 4 paraesophageal hernia) as outpatient evaluation -Repeat ERCP in 6 weeks -for now will continue IV Zosyn, possibly be able to transition to oral ciprofloxacin and metronidazole by 10/08/17 for 2 week total duration -also discussed with gastroenterology Dr. 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 seen on imaging studies and he recommends outpatient follow up with re-imaging Acute kidney injury -creatinine has risen from 1.1 to 1.5 to 1.6, continue IV fluids history of hypertension BP currently stable -hold home medication of triamterene and hydrochlorothiazide 37.5/12.5 for now while on IV fluids to help with ANOOP GERD, HERNIA IV PPI ANXIETY continue citalopram 10 mg daily DVT PROPHYLAXIS -SCDs CODE STATUS -Patient is DNR Disposition: keep as inpatient on IV antibiotic, can transfer from telemetry to medical/surgical floor Vital Signs: Date Time Temp Pulse Resp B/P (MAP) Pulse Ox O2 Delivery O2 Flow Rate FiO2 10/07/17 12:05 Room Air 10/07/17 11:42 36.6 70 24 139/61 (87) 94 Room Air 10/07/17 08:07 37.1 65 17 142/61 (88) 97 Room Air 10/07/17 08:05 Room Air 10/07/17 04:00 Room Air 10/07/17 03:38 37.0 18 18 148/59 (88) 96 Nasal Cannula 2.0 10/07/17 00:00 Room Air 10/06/17 23:33 36.5 70 18 121/55 (77) 96 Nasal Cannula 2.0 10/06/17 20:00 Room Air 10/06/17 18:30 36.5 67 20 132/54 (80) 97 Nasal Cannula 2.0 10/06/17 18:17 36.6 66 18 118/49 (72) 97 Nasal Cannula 2.0 10/06/17 18:06 36.8 116/50 95 10/06/17 18:05 73 17 10/06/17 18:05 71 17 94 10/06/17 18:01 115/47 10/06/17 18:00 77 18 94 10/06/17 18:00 78 18 10/06/17 17:56 114/56 10/06/17 17:55 74 16 98 10/06/17 17:55 Room Air 10/06/17 17:55 74 16 10/06/17 17:51 118/55 10/06/17 17:50 75 16 98 10/06/17 17:50 75 16 10/06/17 17:46 114/70 10/06/17 17:45 79 20 99 10/06/17 17:45 82 20 10/06/17 17:43 115/55 10/06/17 17:35 36.4 87 16 124/47 98 Oxymask 7 10/06/17 15:41 36.4 75 15 113/49 (70) 95 Nasal Cannula 2.0 Lab Results: Results Past 24 Hours Test 10/07/17 05:21 Range/Units White Blood Count 12.59 4.8-10.8 K/uL Red Blood Count 4.16 4.2-5.4 M/uL Hemoglobin 12.9 12.0-16.0 g/dL Hematocrit 38.2 37-47 % Mean Corpuscular Volume 91.8 80-100 fL Mean Corpuscular Hemoglobin 31.0 25-34 pg Mean Corpuscular Hemoglobin Concent 33.8 32-36 g/dl Platelet Count 96 130-400 K/uL Mean Platelet Volume 10.7 7.4-10.4 fL Neutrophils (%) (Auto) 93.5 % Lymphocytes (%) (Auto) 4.0 % Monocytes (%) (Auto) 2.1 % Eosinophils (%) (Auto) 0.0 % Basophils (%) (Auto) 0.1 % Neutrophils # (Auto) 11.78 1.4-6.5 K/uL Lymphocytes # (Auto) 0.50 1.2-3.4 K/uL Monocytes # (Auto) 0.26 0.11-0.59 K/uL Eosinophils # (Auto) 0.00 0-0.5 K/uL Basophils # (Auto) 0.01 0-0.2 K/uL RDW Standard Deviation 53.6 36.4-46.3 fL RDW Coefficient of Variation 15.8 11.5-14.5 % Immature Granulocyte % (Auto) 0.3 % Immature Granulocyte # (Auto) 0.04 0.00-0.02 K/uL Toxic Vacuolation OCCASIONAL Platelet Estimate DECREASED Sodium Level 136 136-145 mmol/L Potassium Level 4.6 3.5-5.1 mmol/L Chloride Level 103 98-107 mmol/L Carbon Dioxide Level 26 21-32 mmol/L Anion Gap 7.0 3-11 mmol/L Blood Urea Nitrogen 29 7-18 mg/dl Creatinine 1.66 0.60-1.20 mg/dl Est Creatinine Clear Calc Drug Dose 28.6 ml/min Estimated GFR () 32.7 Estimated GFR (Non- 28.2 BUN/Creatinine Ratio 17.2 10-20 Random Glucose 116 70-99 mg/dl Calcium Level 8.2 8.5-10.1 mg/dl Total Bilirubin 1.7 0.2-1 mg/dl Aspartate Amino Transf (AST/SGOT) 139 15-37 U/L Alanine Aminotransferase (ALT/SGPT) 351 12-78 U/L Alkaline Phosphatase 157 45-117 U/L Total Protein 5.6 6.4-8.2 gm/dl Albumin 2.2 3.4-5.0 gm/dl Globulin 3.4 2.5-4.0 gm/dl Albumin/Globulin Ratio 0.7 0.9-2 Lipase 290 73-393 U/L
[2017-10-07] MEDS ORDERED: CITALOPRAM 20 MG TAB PO STA (12:40)
[2017-10-07] MEDS ORDERED: NURSING VERBAL MED ORDER ONE ×2 (14:45)
[2017-10-07 15:05] VITALS: BP 148/78; PULSE 60; TEMP 36.5; O2SAT 94
[2017-10-07 16:30] VITALS: BP 148/78; PULSE 60; TEMP 36.5; O2SAT 94
[2017-10-07 23:15] VITALS: BP 154/63; PULSE 62; TEMP 36.8; O2SAT 93
[2017-10-08] MEDS: SODIUM CHLORIDE 0.9% 1000ML 1,000 ML IV SCH ×3 (01:04→20:58)
[2017-10-08 06:30] LABS: HEPATITIS A IGM TC 51813E NON-REACTIVE (NON-REACTIVE); HEPATITIS B CORE IGM TC51854R NON-REACTIVE (NON-REACTIVE)
[2017-10-08 07:07] VITALS: BP 154/84; PULSE 62; TEMP 36.4; O2SAT 94
[2017-10-08 07:39] LABS: EOS % 0.4 %; EOS ABS # 0.06 K/uL (0-0.5); HEMATOCRIT 43.3 % (37-47); HEMOGLOBIN 14.7 g/dL (12.0-16.0); IG# 0.05 K/uL (0.00-0.02); LYMPH % 8.6 %; LYMPH ABS # 1.18 K/uL (1.2-3.4); MEAN CELL VOLUME 92.1 fL (80-100); MEAN CORPUSCULAR HEMOGLOBIN 31.3 pg (25-34); MEAN PLATELET VOLUME 10.2 fL (7.4-10.4); MONO % 3.2 %; MONO ABS # 0.44 K/uL (0.11-0.59); NEUT % 87.4 %; NEUT ABS # 11.95 K/uL (1.4-6.5); PLATELET COUNT 143 K/uL (130-400); RED CELL DISTRIBUTION WIDTH CV 15.8 % (11.5-14.5); WHITE BLOOD COUNT 13.68 K/uL (4.8-10.8)
[2017-10-08 07:54] LABS: MEAN CORPUSCULAR HGB CONC 33.9 g/dl (32-36)
[2017-10-08 08:08] LABS: ALBUMIN 2.6 gm/dl (3.4-5.0); CALCIUM 8.9 mg/dl (8.5-10.1); CREATININE 1.42 mg/dl (0.60-1.20); POTASSIUM 3.8 mmol/L (3.5-5.1); TOTAL PROTEIN 6.5 gm/dl (6.4-8.2)
[2017-10-08] MEDS ORDERED: POLYETHYLENE (MIRALAX) 17 GM PACK PO STA (08:37)
[2017-10-08] MEDS ORDERED: POLYETHYLENE (MIRALAX) 17 GM PACK PO PRN (08:45)
[2017-10-08] MEDS: SENNA 8.6 MG TAB PO SCH (09:04)
[2017-10-08] MEDS: CITALOPRAM 20 MG TAB PO SCH (09:27)
[2017-10-08] MEDS: PANTOprazole SOD 40 MG TAB PO SCH (12:22)
--- NOTE | 2017-10-08 14:15 | Progress Note ---
Internal Med Progress Note Date of Service: Oct 08, 2017. Provider Documentation: Subjective: Denies acute pain or shortness of breath. Patient able to tolerate diet without abdominal pain or nausea. Patient reporting constipation recently Physical Exam General: no acute distress Heart: Regular rate Lungs: CTABL, no wheezing Abdomen: truncal obesity, soft, nontender Extremities: no edema ASSESSMENT & PLAN: Initial presentation and acuity 82-year-old female, status post laparoscopic cholecystectomy in 1978, who presented to the emergency room with 1 day complaint of epigastric abdominal pain with radiation to the back. Labs showed elevated LFTs, total bilirubin, and lipase greater than 30,000. 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 Increase in total bilirubin of 4.0 with an elevated leukocytosis of 22,000 Assessment and plan ERCP/ Endoscopy on by Dr. 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 switch to IV ciprofloxacin and IV Flagyl on 10/08/17 because while patient is clinically improving and liver and biliary enzymes are improving, there is still increase in WBC from 12.6 to 13.6. Patient has been afebrile since ERCP but will keep patient as inpatient for now Acute kidney injury -creatinine downtrending with Iv fluids history of hypertension BP currently stable -hold home medication of triamterene and hydrochlorothiazide 37.5/12.5 for now while on IV fluids to help with ANOOP GERD, HERNIA -PPI ANXIETY continue citalopram 10 mg daily DVT PROPHYLAXIS -SCDs CODE STATUS -Patient is DNR Disposition: keep as inpatient on IV antibiotics Vital Signs: Date Time Temp Pulse Resp B/P (MAP) Pulse Ox O2 Delivery O2 Flow Rate FiO2 10/08/17 08:00 Room Air 10/08/17 07:07 36.4 62 16 154/84 (107) 94 Room Air 10/08/17 00:00 Room Air 10/07/17 23:15 36.8 62 16 154/63 (93) 93 Room Air 10/07/17 16:30 36.5 60 16 94 2.0 10/07/17 15:20 Room Air 10/07/17 15:05 36.5 60 16 148/78 (101) 94 Room Air Lab Results: Results Past 24 Hours Test 10/08/17 07:30 Range/Units White Blood Count 13.68 4.8-10.8 K/uL Red Blood Count 4.70 4.2-5.4 M/uL Hemoglobin 14.7 12.0-16.0 g/dL Hematocrit 43.3 37-47 % Mean Corpuscular Volume 92.1 80-100 fL Mean Corpuscular Hemoglobin 31.3 25-34 pg Mean Corpuscular Hemoglobin Concent 33.9 32-36 g/dl Platelet Count 143 130-400 K/uL Mean Platelet Volume 10.2 7.4-10.4 fL Neutrophils (%) (Auto) 87.4 % Lymphocytes (%) (Auto) 8.6 % Monocytes (%) (Auto) 3.2 % Eosinophils (%) (Auto) 0.4 % Basophils (%) (Auto) 0.0 % Neutrophils # (Auto) 11.95 1.4-6.5 K/uL Lymphocytes # (Auto) 1.18 1.2-3.4 K/uL Monocytes # (Auto) 0.44 0.11-0.59 K/uL Eosinophils # (Auto) 0.06 0-0.5 K/uL Basophils # (Auto) 0.00 0-0.2 K/uL RDW Standard Deviation 54.0 36.4-46.3 fL RDW Coefficient of Variation 15.8 11.5-14.5 % Immature Granulocyte % (Auto) 0.4 % Immature Granulocyte # (Auto) 0.05 0.00-0.02 K/uL Sodium Level 142 136-145 mmol/L Potassium Level 3.8 3.5-5.1 mmol/L Chloride Level 107 98-107 mmol/L Carbon Dioxide Level 28 21-32 mmol/L Anion Gap 6.0 3-11 mmol/L Blood Urea Nitrogen 23 7-18 mg/dl Creatinine 1.42 0.60-1.20 mg/dl Est Creatinine Clear Calc Drug Dose 33.4 ml/min Estimated GFR () 39.5 Estimated GFR (Non- 34.1 BUN/Creatinine Ratio 15.8 10-20 Random Glucose 79 70-99 mg/dl Calcium Level 8.9 8.5-10.1 mg/dl Total Bilirubin 1.0 0.2-1 mg/dl Aspartate Amino Transf (AST/SGOT) 58 15-37 U/L Alanine Aminotransferase (ALT/SGPT) 257 12-78 U/L Alkaline Phosphatase 154 45-117 U/L Total Protein 6.5 6.4-8.2 gm/dl Albumin 2.6 3.4-5.0 gm/dl Globulin 3.9 2.5-4.0 gm/dl Albumin/Globulin Ratio 0.7 0.9-2
[2017-10-08 14:51] VITALS: BP 149/79; PULSE 62; TEMP 36.3; O2SAT 94
[2017-10-08] MEDS: CIPROFLOXACIN / D5W 400 MG in PREMIXED IN D5W 200 ML IV SCH (15:13)
[2017-10-08] MEDS: METRONIDAZOLE / NSS 500 MG in PREMIXED NSS 100 ML IV SCH (17:32)
[2017-10-08 22:56] VITALS: BP 147/83; PULSE 71; TEMP 36.7; O2SAT 96
[2017-10-09] MEDS: METRONIDAZOLE / NSS 500 MG in PREMIXED NSS 100 ML IV SCH ×2 (02:26→09:39)
[2017-10-09] MEDS: CIPROFLOXACIN / D5W 400 MG in PREMIXED IN D5W 200 ML IV SCH (04:02)
[2017-10-09] MEDS: SODIUM CHLORIDE 0.9% 1000ML 1,000 ML IV SCH (05:54)
[2017-10-09 06:40] LABS: BASO % 0.1 %; BASO ABS # 0.01 K/uL (0-0.2); EOS ABS # 0.07 K/uL (0-0.5); HEMATOCRIT 37.4 % (37-47); HEMOGLOBIN 12.8 g/dL (12.0-16.0); IG# 0.02 K/uL (0.00-0.02); LYMPH % 12.9 %; LYMPH ABS # 0.91 K/uL (1.2-3.4); MEAN CELL VOLUME 91.4 fL (80-100); MEAN CORPUSCULAR HEMOGLOBIN 31.3 pg (25-34); MEAN CORPUSCULAR HGB CONC 34.2 g/dl (32-36); MEAN PLATELET VOLUME 10.5 fL (7.4-10.4); MONO % 7.8 %; MONO ABS # 0.55 K/uL (0.11-0.59); NEUT % 77.9 %; NEUT ABS # 5.51 K/uL (1.4-6.5); PLATELET COUNT 107 K/uL (130-400); RED CELL DISTRIBUTION WIDTH CV 15.5 % (11.5-14.5); RED CELL DISTRIBUTION WIDTH SD 52.4 fL (36.4-46.3); WHITE BLOOD COUNT 7.07 K/uL (4.8-10.8)
[2017-10-09 07:11] LABS: ALBUMIN 2.1 gm/dl (3.4-5.0); CALCIUM 8.3 mg/dl (8.5-10.1); CREATININE 0.91 mg/dl (0.60-1.20); POTASSIUM 3.7 mmol/L (3.5-5.1); TOTAL PROTEIN 5.2 gm/dl (6.4-8.2)
[2017-10-09 08:22] VITALS: BP 112/66; PULSE 69; TEMP 37; O2SAT 94
[2017-10-09] MEDS: CITALOPRAM 20 MG TAB PO SCH (08:27)
[2017-10-09] MEDS: PANTOprazole SOD 40 MG TAB PO SCH (08:27)
[2017-10-09] MEDS: SENNA 8.6 MG TAB PO SCH (08:28)
--- NOTE | 2017-10-09 10:22 | Gastroenterology Progress Note ---
Progress Note Date of Service: Oct 09, 2017 Subjective Pt evaluation today including: conversation w/ patient, physical exam, chart review, lab review, review of studies, review of inpatient medication list Pt states she feels very well, had finished regular breakfast w/o n/v, abd pain. LFTs decreasing, lipase normalized. Review of Systems Constitutional: No fever, No chills Respiratory: No cough, No shortness of breath Cardiac: No chest pain Abdomen: No pain, No nausea, No vomiting Medications Current Inpatient Medications Medications (Trade) Dose Ordered Sig/Rhiannon Route Start Time Stop Time Status Last Admin Dose Admin Ondansetron HCl (Zofran Inj) 4 mg Q6H PRN IV 10/05/17 19:15 11/04/17 19:14 10/06/17 10:13 4 MG Hydromorphone HCl (Dilaudid Inj) 0.5 mg Q6H PRN IV 10/05/17 20:30 10/19/17 20:29 10/06/17 10:09 0.5 MG Lorazepam (Ativan Inj) 0.5 mg UD PRN IV 10/05/17 21:45 11/04/17 21:44 Sodium Chloride 1,000 ml @ 100 mls/hr Q10H IV 10/07/17 09:15 11/06/17 09:14 10/09/17 05:54 100 MLS/HR Citalopram Hydrobromide (celeXA TAB) 10 mg QAM PO 10/08/17 09:00 11/07/17 08:59 10/09/17 08:27 10 MG Senna (Senokot Tab) 17.2 mg QAM PO 10/08/17 09:00 11/07/17 08:59 10/09/17 08:28 17.2 MG Polyethylene (Miralax Powder Packet) 17 gm DAILY PRN PO 10/08/17 08:45 11/07/17 08:44 Pantoprazole Sodium (Protonix Tab) 40 mg DAILY PO 10/09/17 09:00 11/08/17 08:59 10/09/17 08:27 40 MG Metronidazole 500 mg/Prmx 100 ml @ 100 mls/hr Q8H IV 10/08/17 18:00 10/18/17 17:59 10/09/17 09:39 100 MLS/HR Ciprofloxacin/ Dextrose 400 mg/ Prmx 200 ml @ 100 mls/hr Q12H IV 10/08/17 16:00 10/18/17 15:59 10/09/17 04:02 100 MLS/HR Objective Vital Signs Date Time Temp Pulse Resp B/P (MAP) Pulse Ox O2 Delivery O2 Flow Rate FiO2 10/09/17 08:22 37.0 69 16 112/66 (81) 94 Room Air 10/09/17 07:35 Room Air 10/08/17 23:45 Room Air 10/08/17 22:56 36.7 71 16 147/83 (104) 96 Room Air 10/08/17 20:00 Room Air 10/08/17 15:34 Room Air 10/08/17 14:51 36.3 62 16 149/79 (102) 94 Room Air Physical Exam General Appearance: WD/WN, no apparent distress Eyes: normal inspection, PERRL, EOMI Neck: supple, no JVD, trachea midline Respiratory/Chest: normal breath sounds, no respiratory distress, no accessory muscle use Cardiovascular: regular rate, rhythm, no gallop, no murmur Abdomen: normal bowel sounds, non tender, soft Extremities: normal inspection, no pedal edema, no calf tenderness Neurologic/Psych: alert, normal mood/affect, oriented x 3 Skin: normal color, no jaundice, no rash Laboratory Results Last 24 Hours Test 10/09/17 06:04 White Blood Count 7.07 K/uL Red Blood Count 4.09 M/uL Hemoglobin 12.8 g/dL Hematocrit 37.4 % Mean Corpuscular Volume 91.4 fL Mean Corpuscular Hemoglobin 31.3 pg Mean Corpuscular Hemoglobin Concent 34.2 g/dl Platelet Count 107 K/uL Mean Platelet Volume 10.5 fL Neutrophils (%) (Auto) 77.9 % Lymphocytes (%) (Auto) 12.9 % Monocytes (%) (Auto) 7.8 % Eosinophils (%) (Auto) 1.0 % Basophils (%) (Auto) 0.1 % Neutrophils # (Auto) 5.51 K/uL Lymphocytes # (Auto) 0.91 K/uL Monocytes # (Auto) 0.55 K/uL Eosinophils # (Auto) 0.07 K/uL Basophils # (Auto) 0.01 K/uL RDW Standard Deviation 52.4 fL RDW Coefficient of Variation 15.5 % Immature Granulocyte % (Auto) 0.3 % Immature Granulocyte # (Auto) 0.02 K/uL Sodium Level 141 mmol/L Potassium Level 3.7 mmol/L Chloride Level 110 mmol/L Carbon Dioxide Level 28 mmol/L Anion Gap 3.0 mmol/L Blood Urea Nitrogen 17 mg/dl Creatinine 0.91 mg/dl Est Creatinine Clear Calc Drug Dose 52.1 ml/min Estimated GFR () 67.6 Estimated GFR (Non- 58.3 BUN/Creatinine Ratio 18.5 Random Glucose 78 mg/dl Calcium Level 8.3 mg/dl Total Bilirubin 0.7 mg/dl Aspartate Amino Transf (AST/SGOT) 23 U/L Alanine Aminotransferase (ALT/SGPT) 153 U/L Alkaline Phosphatase 134 U/L Total Protein 5.2 gm/dl Albumin 2.1 gm/dl Globulin 3.1 gm/dl Albumin/Globulin Ratio 0.7 Assessment and Plan Pt is a 82 y.o female admitted for gallstone pancreatitis and cholangitis s/p ERCP on 10/06 w choledocholithiasis removal and CBD stent placement. She is also s/p cholecystectomy. EGD done at same time of ERCP showed large hiatal hernia w partially intrathoracic stomach. Pt does have reflux symptoms but she said controlled well w Ranitidine and Omeprazole at home. Refused surgery evaluation at this time. She is doing very well, no jaundice, abd pain, n/v. Tolerating regular diet well. LFTs, Lipase decreased. No more leukocytosis. - OK for DC home from GI standpoint. - We will call to arrange repeat ERCP in 6 week's time to remove biliary stent - Continue oral antibx x 2 weeks' time. No NSAIDs x 1 week - Had discussed possible Surgery eval for paraesophageal hernia, she refused at this time. Can discuss further with PCP and refer to Surgery if indicated or if pt desires. Attg add: I interviewed and examined pt, reviewed chart and labs. Pt without complaints, feels well. Plan as above.
--- NOTE | 2017-10-09 11:35 | Progress Note ---
Internal Med Progress Note Date of Service: Oct 09, 2017. Provider Documentation: Subjective: Denies acute pain or shortness of breath. Patient able to tolerate diet without abdominal pain or nausea. Patient reporting that she has made bowel movements Physical Exam General: no acute distress Heart: Regular rate Lungs: CTABL, no wheezing Abdomen: truncal obesity, soft, nontender Extremities: no edema ASSESSMENT & PLAN: Initial presentation and acuity 82-year-old female, status post laparoscopic cholecystectomy in 1978, who presented to the emergency room with 1 day complaint of epigastric abdominal pain with radiation to the back. Labs showed elevated LFTs, total bilirubin, and lipase greater than 30,000. 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 Increase in total bilirubin of 4.0 with an elevated leukocytosis of 22,000 Hospital Course and Discharge Plans ERCP/ Endoscopy on by Dr. 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 switch to IV ciprofloxacin and IV metronidazole on 10/08/17 because while patient is clinically improving and liver and biliary enzymes are improving, there is still increase in WBC from 12.6 to 13.6. -WBC has normalized on 10/09/17 and patient to be discharged on oral ciprofloxacin and oral metronidazole Acute kidney injury: resolved with IV fluids history of hypertension: continue with home medication of triamterene and hydrochlorothiazide 37.5/12.5 on discharge GERD, HERNIA: continue home dose reflux medication, follow up with primary care doctor to be referred a surgeon given the thoracic stomach and herniation of colon into the chest (type 4 paraesophageal hernia) ANXIETY: continue citalopram 10 mg daily Discharge Instructions Discharge home with follow up 10/11/2017 1:00 PM Oc Mcgovern MD Internal Medicine [facility] Patient should follow up with primary care doctor for following up with oral antibiotics (Continue oral oral antibiotics x 2 weeks' time. No NSAID type medications for 1 week) and if develops future abdominal symptoms, and monitoring of the (IPMN) Intraductal papillary mucinous neoplasm Patient should obtain referral from primary care doctor to follow up with a surgeon given the thoracic stomach and herniation of colon into the chest ( type 4 paraesophageal hernia) The [facility] gastroenterology group will call patient to arrange repeat ERCP in 6 weeks to remove the biliary stent which was placed by Dr. Del Valle Any questions or scheduling with [facility] clinics, call [phone] Vital Signs: Date Time Temp Pulse Resp B/P (MAP) Pulse Ox O2 Delivery O2 Flow Rate FiO2 10/09/17 08:22 37.0 69 16 112/66 (81) 94 Room Air 10/09/17 07:35 Room Air 10/08/17 23:45 Room Air 10/08/17 22:56 36.7 71 16 147/83 (104) 96 Room Air 10/08/17 20:00 Room Air 10/08/17 15:34 Room Air 10/08/17 14:51 36.3 62 16 149/79 (102) 94 Room Air Lab Results: Results Past 24 Hours Test 10/09/17 06:04 Range/Units White Blood Count 7.07 4.8-10.8 K/uL Red Blood Count 4.09 4.2-5.4 M/uL Hemoglobin 12.8 12.0-16.0 g/dL Hematocrit 37.4 37-47 % Mean Corpuscular Volume 91.4 80-100 fL Mean Corpuscular Hemoglobin 31.3 25-34 pg Mean Corpuscular Hemoglobin Concent 34.2 32-36 g/dl Platelet Count 107 130-400 K/uL Mean Platelet Volume 10.5 7.4-10.4 fL Neutrophils (%) (Auto) 77.9 % Lymphocytes (%) (Auto) 12.9 % Monocytes (%) (Auto) 7.8 % Eosinophils (%) (Auto) 1.0 % Basophils (%) (Auto) 0.1 % Neutrophils # (Auto) 5.51 1.4-6.5 K/uL Lymphocytes # (Auto) 0.91 1.2-3.4 K/uL Monocytes # (Auto) 0.55 0.11-0.59 K/uL Eosinophils # (Auto) 0.07 0-0.5 K/uL Basophils # (Auto) 0.01 0-0.2 K/uL RDW Standard Deviation 52.4 36.4-46.3 fL RDW Coefficient of Variation 15.5 11.5-14.5 % Immature Granulocyte % (Auto) 0.3 % Immature Granulocyte # (Auto) 0.02 0.00-0.02 K/uL Sodium Level 141 136-145 mmol/L Potassium Level 3.7 3.5-5.1 mmol/L Chloride Level 110 98-107 mmol/L Carbon Dioxide Level 28 21-32 mmol/L Anion Gap 3.0 3-11 mmol/L Blood Urea Nitrogen 17 7-18 mg/dl Creatinine 0.91 0.60-1.20 mg/dl Est Creatinine Clear Calc Drug Dose 52.1 ml/min Estimated GFR () 67.6 Estimated GFR (Non- 58.3 BUN/Creatinine Ratio 18.5 10-20 Random Glucose 78 70-99 mg/dl Calcium Level 8.3 8.5-10.1 mg/dl Total Bilirubin 0.7 0.2-1 mg/dl Aspartate Amino Transf (AST/SGOT) 23 15-37 U/L Alanine Aminotransferase (ALT/SGPT) 153 12-78 U/L Alkaline Phosphatase 134 45-117 U/L Total Protein 5.2 6.4-8.2 gm/dl Albumin 2.1 3.4-5.0 gm/dl Globulin 3.1 2.5-4.0 gm/dl Albumin/Globulin Ratio 0.7 0.9-2
[2017-10-09] MEDS ORDERED: CPR500 OR (11:43)
[2017-10-09] MEDS ORDERED: METR500T PO (11:44)
--- NOTE | 2017-10-09 11:49 | Discharge Instructions ---
Discharge Instructions Date of Service Oct 09, 2017. Admission Reason for Admission: Pancreatitis Discharge Discharge Diagnosis / Problem: common bile obstruction, cholangitis, pancreatitis Discharge Goals Goal(s): Improve disease control Activity Recommendations Activity Limitations: per Instructions/Follow-up section Shower/Bathe: no limitations . Instructions / Follow-Up Instructions / Follow-Up Initial presentation and acuity 82-year-old female, status post laparoscopic cholecystectomy in 1978, who presented to the emergency room with 1 day complaint of epigastric abdominal pain with radiation to the back. Labs showed elevated LFTs, total bilirubin, and lipase greater than 30,000. 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 Increase in total bilirubin of 4.0 with an elevated leukocytosis of 22,000 Hospital Course and Discharge Plans ERCP/ Endoscopy on by Dr. 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 switch to IV ciprofloxacin and IV metronidazole on 10/08/17 because while patient is clinically improving and liver and biliary enzymes are improving, there is still increase in WBC from 12.6 to 13.6. 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 No NSAID type medications for 1 week) and if develops future abdominal symptoms, and monitoring of the (IPMN) Intraductal papillary mucinous neoplasm Patient should obtain referral from primary care doctor to follow up with a surgeon given the thoracic stomach and herniation of colon into the chest ( type 4 paraesophageal hernia) The [facility] gastroenterology group will call patient to arrange repeat ERCP in 6 weeks to remove the biliary stent which was placed by Dr. Del Valle Any questions or scheduling with [facility], call [phone] Current Hospital Diet Patient's current hospital diet: Regular Diet Discharge Diet Recommended Diet: Regular Diet Procedures Procedures Performed: EGD ERCP Pending Studies Studies pending at discharge: no Laboratory Results 10/09/17 06:04 Red Blood Count 4.09, Mean Corpuscular Volume 91.4, Mean Corpuscular Hemoglobin 31.3, Mean Corpuscular Hemoglobin Concent 34.2, Mean Platelet Volume 10.5, Neutrophils (%) (Auto) 77.9, Lymphocytes (%) (Auto) 12.9, Monocytes (%) (Auto) 7.8, Eosinophils (%) (Auto) 1.0, Basophils (%) (Auto) 0.1, Neutrophils # (Auto) 5.51, Lymphocytes # (Auto) 0.91, Monocytes # (Auto) 0.55, Eosinophils # (Auto) 0.07, Basophils # (Auto) 0.01 10/09/17 06:04 Test 10/05/17 17:20 10/05/17 18:50 10/05/17 19:56 10/05/17 22:02 Magnesium Level 1.7 mg/dl (1.8-2.4) Direct Bilirubin 1.9 mg/dl (0-0.2) Triglycerides Level 140 mg/dl (0-150) Urine Color YELLOW Urine Appearance CLEAR (CLEAR) Urine pH 5.0 (4.5-7.5) Urine Specific [place] 1.010 (1.000-1.030) Urine Protein NEG (NEG) Urine Glucose (UA) NEG (NEG) Urine Ketones NEG (NEG) Urine Occult Blood 1+ (NEG) Urine Nitrite NEG (NEG) Urine Bilirubin 1+ (NEG) Urine Urobilinogen POS (NEG) Urine Leukocyte Esterase NEG (NEG) Urine RBC 5-10 /hpf (0-4) Urine WBC 1-5 /hpf (0-5) Urine Epithelial Cells 10-20 /lpf (0-5) Urine Bacteria NEG (NEG) Miscellaneous Test REPORT Acetaminophen Level ug/ml (10-30) Hepatitis A IgM Antibody NON-REACTIVE (NON-REACTIVE) Hepatitis B Surface Antigen NEG (NEG) Hepatitis B Core IgM Antibody NON-REACTIVE (NON-REACTIVE) Hepatitis C Antibody NEG (NEG) Prothrombin Time 10.2 SECONDS (9.0-12.0) Prothromb Time International Ratio 1.0 (0.9-1.1) Test 10/07/17 05:21 10/09/17 06:04 Toxic Vacuolation OCCASIONAL Platelet Estimate DECREASED Lipase 290 U/L (73-393) White Blood Count 7.07 K/uL (4.8-10.8) Red Blood Count 4.09 M/uL (4.2-5.4) Hemoglobin 12.8 g/dL (12.0-16.0) Hematocrit 37.4 % (37-47) Mean Corpuscular Volume 91.4 fL (80-100) Mean Corpuscular Hemoglobin 31.3 pg (25-34) Mean Corpuscular Hemoglobin Concent 34.2 g/dl (32-36) Platelet Count 107 K/uL (130-400) Mean Platelet Volume 10.5 fL (7.4-10.4) Neutrophils (%) (Auto) 77.9 % Lymphocytes (%) (Auto) 12.9 % Monocytes (%) (Auto) 7.8 % Eosinophils (%) (Auto) 1.0 % Basophils (%) (Auto) 0.1 % Neutrophils # (Auto) 5.51 K/uL (1.4-6.5) Lymphocytes # (Auto) 0.91 K/uL (1.2-3.4) Monocytes # (Auto) 0.55 K/uL (0.11-0.59) Eosinophils # (Auto) 0.07 K/uL (0-0.5) Basophils # (Auto) 0.01 K/uL (0-0.2) RDW Standard Deviation 52.4 fL (36.4-46.3) RDW Coefficient of Variation 15.5 % (11.5-14.5) Immature Granulocyte % (Auto) 0.3 % Immature Granulocyte # (Auto) 0.02 K/uL (0.00-0.02) Anion Gap 3.0 mmol/L (3-11) Est Creatinine Clear Calc Drug Dose 52.1 ml/min Estimated GFR () 67.6 Estimated GFR (Non- 58.3 BUN/Creatinine Ratio 18.5 (10-20) Calcium Level 8.3 mg/dl (8.5-10.1) Total Bilirubin 0.7 mg/dl (0.2-1) Aspartate Amino Transf (AST/SGOT) 23 U/L (15-37) Alanine Aminotransferase (ALT/SGPT) 153 U/L (12-78) Alkaline Phosphatase 134 U/L (45-117) Total Protein 5.2 gm/dl (6.4-8.2) Albumin 2.1 gm/dl (3.4-5.0) Globulin 3.1 gm/dl (2.5-4.0) Albumin/Globulin Ratio 0.7 (0.9-2) Date/Time Source Procedure Growth Status 10/05/17 22:10 Blood Blood Culture - Preliminary NO GROWTH TO DATE. Resulted Lipid Panel Test 10/05/17 17:20 Range/Units Triglycerides Level 140 0-150 mg/dl Medical Emergencies . Who to Call and When: Medical Emergencies: If at any time you feel your situation is an emergency, please call 911 immediately. . Non-Emergent Contact Non-Emergency issues call your: Primary Care Provider Call Non-Emergent contact if: you have any medication questions . . "Provider Documentation" section prepared by Marco A Vásquez. .
--- NOTE | 2017-10-09 11:57 | Discharge Summary ---
Discharge Summary Date of Service Oct 09, 2017. 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 Patient reports her pain initially began throughout the night however she reports she was able to sleep. When patient woke up this morning she ate breakfast and then the pain returned. It progressively got worse throughout the day. She reports pain is located in the mid abdomen and midepigastric area. She denies any radiation of the pain. She reports the pain is severe. She had nausea but denies any vomiting. She had some episodes of hot flashes and chills with the pain. No documented fevers. She reports she otherwise has been feeling well recently. No chest pain or shortness of breath. She reports some occasional lightheadedness when standing too quickly which is chronic. No dizziness or syncopal events. She denies any urinary symptoms. In the ED, patient is found to have a transaminitis and lipase of greater than 30,000. She is hemodynamically stable. She was given IVF, IV Zofran, and IV Dilaudid. She reports marked improvement in her symptoms. Physical Exam (per Admitting): General Appearance: WD/WN, no apparent distress Head: normocephalic, atraumatic Eyes: normal inspection, EOMI, sclerae normal ENT: hearing grossly normal, + pertinent finding (Mucous membranes dry) Neck: supple, no JVD, trachea midline Respiratory/Chest: lungs clear, normal breath sounds, no respiratory distress Cardiovascular: regular rate, rhythm, no edema, normal peripheral pulses Abdomen/GI: normal bowel sounds, non tender, soft, no organomegaly Extremities/Musculoskelatal: normal inspection, no calf tenderness, normal capillary refill Neurologic/Psych: no motor/sensory deficits, alert, normal mood/affect, oriented x 3 Skin: normal color, warm/dry Hospital Course Initial presentation and acuity 82-year-old female, status post laparoscopic cholecystectomy in 1978, who presented to the emergency room with 1 day complaint of epigastric abdominal pain with radiation to the back. Labs showed elevated LFTs, total bilirubin, and lipase greater than 30,000. 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 Increase in total bilirubin of 4.0 with an elevated leukocytosis of 22,000 Hospital Course and Discharge Plans ERCP/ Endoscopy on by Dr. 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 switch to IV ciprofloxacin and IV metronidazole on 10/08/17 because while patient is clinically improving and liver and biliary enzymes are improving, there is still increase in WBC from 12.6 to 13.6. -WBC has normalized on 10/09/17 and patient to be discharged on oral ciprofloxacin and oral metronidazole Acute kidney injury: resolved with IV fluids history of hypertension: continue with home medication of triamterene and hydrochlorothiazide 37.5/12.5 on discharge GERD, HERNIA: continue home dose reflux medication, follow up with primary care doctor to be referred a surgeon given the thoracic stomach and herniation of colon into the chest (type 4 paraesophageal hernia) ANXIETY: continue citalopram 10 mg daily Discharge Instructions Discharge home with follow up 10/11/2017 1:00 PM Oc Mcgovern MD Internal Medicine [facility] Patient should follow up with primary care doctor for following up with oral antibiotics (Continue oral oral antibiotics x 2 weeks' time. No NSAID type medications for 1 week) and if develops future abdominal symptoms, and monitoring of the (IPMN) Intraductal papillary mucinous neoplasm Patient should obtain referral from primary care doctor to follow up with a surgeon given the thoracic stomach and herniation of colon into the chest ( type 4 paraesophageal hernia) The [facility] affiliated gastroenterology group will call patient to arrange repeat ERCP in 6 weeks to remove the biliary stent which was placed by Dr. Del Valle Any questions or scheduling with [facility] affiliated clinics, call [phone] Total time spent on discharge = 40 minutes This includes examination of the patient, discharge planning, medication reconciliation, and communication with other providers. Discharge Instructions see above
[2017-10-09 12:11] VITALS: BP 112/66; PULSE 69; TEMP 37; O2SAT 94
== END 2017-10-09 12:53 | disposition home or self-care (01) | DRG 444 ==
LOC: EDBD 16:28 → C.EDA 16:29 → C.2E 19:06 → ENRESERV 19:42 → EDBEDREQ 10-07 12:34 → EDBEDREQSVC 10-07 12:34 → EDBEDREQ 10-07 12:35 → ENRESERV 10-07 12:43 → C.MSN 10-07 14:35
PROVIDERS: ADMIT Hospitalist; ATTEND Hospitalist
PROC: 0DJ08ZZ Inspection of Upper Intestinal Tract, Via Natural or Artificial Opening Endoscopic (ICD-10-PCS; principal; 2017-10-06 08:30)
PROC: 0FC98ZZ Extirpation of Matter from Common Bile Duct, Via Natural or Artificial Opening Endoscopic (ICD-10-PCS; principal; 2017-10-06 08:30)
PROC: 0F798DZ Dilation of Common Bile Duct with Intraluminal Device, Via Natural or Artificial Opening Endoscopic (ICD-10-PCS; principal; 2017-10-06 08:30)
DX: K80.31 Calculus of bile duct with cholangitis, unspecified, with obstruction (principal); K85.10 Biliary acute pancreatitis without necrosis or infection; N17.9 Acute kidney failure, unspecified; D13.6 Benign neoplasm of pancreas; R74.0 Nonspecific elevation of levels of transaminase and lactic acid dehydrogenase [LDH]; K44.9 Diaphragmatic hernia without obstruction or gangrene; I12.9 Hypertensive chronic kidney disease with stage 1 through stage 4 chronic kidney disease, or unspecified chronic kidney disease; N18.3 Chronic kidney disease, stage 3 (moderate); K21.9 Gastro-esophageal reflux disease without esophagitis; F41.9 Anxiety disorder, unspecified; Z66 Do not resuscitate; Z90.49 Acquired absence of other specified parts of digestive tract; Z96.653 Presence of artificial knee joint, bilateral; Z79.899 Other long term (current) drug therapy